=== PATIENT | male | born 1955 | race Caucasian/White ===

== ENCOUNTER 2018-11-18 10:38 | Day surgery (SDC) | payer MEDICARE, SELFPAY ==
--- NOTE | 2018-11-17 10:01 | PCM.HP.BLA ---
History and Physical Date of Admission: 11/18/18 HISTORY AND PHYSICAL ? Ralph Mcdonoughons 1955 ? REFERRING PHYSICIAN: ??Guanaco Cyr, DO ? CHIEF COMPLAINT: ??Consult (Consult Colonoscopy) ? HPI: The patient is a 63 year old male referred for endoscopy. ?Ralph has a personal history of colon cancer diagnosed in 2011 and is s/p partial colectomy which was done in [place]. ?He later underwent laparoscopic liver resection and ablation for liver metastases. ?He NOTES a recent history of blood in his stool.???He has noted both bright red blood with wiping as well as some slightly darker blood mixed into the stool itself.??Patient denies any change in bowel habits, weight changes, black tarry stools or abdominal pain. ? ? The patient?NOTES the following upper?GI complaints: ?Notes recent history of heartburn. He describes this as mid-sternal chest discomfort without radiation, no true symptoms of reflux or brackish taste, no dysphagia. ?Rates pain as 1/10 most of the time, sometimes up to 4/10 in the evenings. ?Denies shortness of breath. ?He recently started omeprazole which seems to be helping. ?Notes he has been under a great deal of stress as he has been helping his father who was recently diagnosed with advanced colon cancer. ?Patient has had not had a recent EKG. Notes some family history of heart disease. ?Patient does use tobacco, smokes ~10 cigarettes per day. ?He states he consumes 4-5 alcoholic beverages every other day. ?He takes lexapro and occasionally Ativan for anxiety. ? ? Patient denies problems with sedation in the past. ? ? ? PAST?MEDICAL?HISTORY PAST MEDICAL HISTORY Diagnosis Date ? Bowel disease ? ? Colon CA ? Colon cancer (HCC) ? ? Depression ? ? Hemorrhoids ? ? HTN (hypertension) ? ? Hypercholesteremia ? ? ? PAST?SURGICAL?HISTORY PAST SURGICAL HISTORY Procedure Laterality Date ? ABLATION LIVER LESION NANOKNIFE ? 2015 ? COLONOSCOP W/ OR W/O BRSH SPEC ? 12/25/2011 ? Colonoscopy ? COLONOSCOPY ? 2013 ? LAP LIVER RESECTION ? 2013 ? w/ ablation ? PARTIAL REMOVAL OF COLON ? 2011 ? ascending colon ? PAST SURGICAL HISTORY OF ? 1989 ? Rt shoulder surgery ? PAST SURGICAL HISTORY OF ? 2003 ? Lumbar back surgery ? TUNNEL VAD W SUB Q PORT >=5 ? 03/11/13 ? right ? ? CURRENT?MEDICATIONS ? Current Outpatient Medications: omeprazole (PRILOSEC) 20 mg capsule Take 2 capsules by mouth once daily. lamoTRIgine (LAMICTAL) 100 mg tablet Take 100 mg by mouth every morning. escitalopram oxalate (LEXAPRO) 20 mg tablet Take 20 mg by mouth every morning. LORazepam (ATIVAN) 1 mg tablet Take 1 tablet by mouth every 6 hours as needed for up to 90 days. metoprolol succinate ER (TOPROL XL) 25 mg 24 hr tablet Take 1 tablet by mouth once daily. acetaminophen (TYLENOL) 500 mg tablet Take 1,000 mg by mouth as needed. TURMERIC ROOT EXTRACT ORAL Take 1 tablet by mouth once daily. OTC PRODUCT 5-MTHF, phytomulti,alpha lipoic acid pravastatin (PRAVACHOL) 40 mg tablet Take 40 mg by mouth once daily. ? DYAZIDE 37.5 MG-25 MG CAP Take one (1) capsule daily. ? No current facility-administered medications for this visit.? ? ALLERGIES:?Eloxatin [Oxaliplatin] ? PERSONAL HISTORY:? SOCIAL?HISTORY Social History ??Socioeconomic History ?Marital status: ?Spouse name: Not on file ?Number of children: Not on file ?Years of education: Not on file ?Highest education level: Not on file ??Occupational History ?Occupation: FOOD AND BEVERAGE SERVER ?Employer: [employer] ??Social Needs ?Financial resource strain: Not on file ?Food insecurity: ?Worry: Not on file ?Inability: Not on file ?Transportation needs: ?Medical: Not on file ?Non-medical: Not on file ??Tobacco Use ?Smoking status: Current Every Day Smoker ?Packs/day: 1.00 ?Years: 44.00 ?Pack years: 44 ?Types: Cigarettes ?Smokeless tobacco: Never Used ?Tobacco comment: Pt has cut back to 10 cigarettes daily. ??Substance and Sexual Activity ?Alcohol use: Yes ?Frequency: 2-3 times a week ?Drinks per session: 5 or 6 ?Binge frequency: Less than monthly ?Comment: rare ?Drug use: No ?Sexual activity: Yes ?Partners: Female ? control/protection: None ??Lifestyle ?Physical activity: ?Days per week: Not on file ?Minutes per session: Not on file ?Stress: Not on file ??Relationships ?Social connections: ?Talks on phone: Not on file ?Gets together: Not on file ?Attends mormonism service: Not on file ?Active member of club or organization: Not on file ?Attends meetings of clubs or organizations: Not on file ?Relationship status: Not on file ?Intimate partner violence: ?Fear of current or ex partner: Not on file ?Emotionally abused: Not on file ?Physically abused: Not on file ?Forced sexual activity: Not on file ??Other Topics ?Concerns: ?Not on file ??Social History Narrative ?Not on file ? FAMILY HISTORY:? FAMILY?HISTORY FAMILY HISTORY Problem Relation Age of Onset ? Arthritis Mother ? ? DVT Brother ? ? other (Diverticulitis [Other]) Brother ? ? other (dementia [Other]) Mother ? ? GI Brother ?TVA with HGD ? REVIEW OF SYMPTOMS: ??The review of systems data was entered by the nurse and reviewed by me ? Nursing Notes: Sang Rivero LPN ?11/13/2018 ?8:16 AM ?Signed REVIEW OF SYSTEMS: ?General:???The patient denies fatigue, denies weight loss, denies weight gain, denies feeling hot, and denies feelings of cold. ?Eyes: ?The patient denies glaucoma, denies eye injury/surgery, wears glasses or contacts. ?Ear/Nose/Throat: ?The patient denies allergies, denies hayfever, denies ear infections, and denies bloody noses. ?Cardiovascular: ?The patient denies chest pain, denies heart disease,NOTES high blood pressure,denies cardiac stent, denies prior heart attack, denies irregular heart beat, denies high cholesterol, ?denies poor circulation, denies heart failure, other cardiac issues, denies claudication, denies cold feet, denies peripheral arterial stent. ?Respiratory: ?The patient denies tuberculosis, denies pneumonia, denies frequent cough, denies pulmonary embolism, denies shortness of breath, and denies coughing up blood. ?Gastrointestinal: ?The patient denies difficulty swallowing, NOTES acid reflux, NOTES ulcers, denies vomiting, denies jaundice/hepatitis, denies gallbladder problems, denies black or tarry stools, NOTES hemorrhoids, NOTES bleeding from rectum, denies diverticulitis, denies constipation, denies diarrhea, denies loss of stool control, and denies hernias. ?Kidney/Bladder: ?The patient denies kidney stones, denies urine infections, and denies bloody urine. ?Skin: ?The patient denies a history of skin cancer, NOTES bleeding/changing moles, and denies a history of skin rash. ?Neurologic: ?The patient denies a history of epilepsy/convulsions, denies headaches, denies head/spinal injuries, and denies stroke/TIA. ?Psychiatric: ?The patient NOTES psychiatric medications, NOTES depression, and denies voices, denies substance abuse. ?Endocrine: ?The patient denies thyroid disorders, denies diabetes, and denies hormonal problems. ?Hematologic: ?The patient denies a history of bruising, denies bleeding, and denies anemia, denies blood clots. ?Infections: ?The patient denies a history of measles and mumps, denies rheumatic fever, and denies sexually transmitted diseases. ?Musculoskeletal: ?The patient denies back pain/injury, NOTES back problems, denies sciatica, denies knee/foot trouble, denies arthritis, or denies gout. ? ? When was patient's last Mammogram screening? N/A ? ?Last Colonoscopy: ?2012 ? Sang Rivero LPN? I have confirmed and edited as necessary, the PFSH and ROS obtained by others. ? ? PHYSICAL EXAMINATION: ? General: ?The patient is 63 year old male, well nourished, well hydrated in no acute distress. ?The patient is oriented to time, place, and person. ? VITALS:?Blood pressure 126/74, pulse 78, temperature 36.5 ?C (97.7 ?F), temperature source Temporal Artery, height 185.4 cm (6' 1), weight 96.2 kg (212 lb), SpO2 98 %.?Body mass index is 27.97 kg/m?.? ? HEENT: ?Normal cephalic, ataumatic, pupils are equally round, sclera are anicteric, mucous membranes are moist, oropharynx is clear. ?Neck has no masses, asymmetry or lymphadenopathy. ? ? Respiratory: ?Clear to auscultation and percussion. ?Normal respiratory excursion and pattern. ? Cardiac: ?Examination is regular rate and rhythm. ?Normal S1/S2 ? Abdominal exam: ?Soft, nontender, ?with no palpable masses. ?No hepatosplenomegaly. ?No palpable hernias. ? Extremities: ?no clubbing, cyanosis or edema. ?No adenopathy. ? LABORATORY VALUES: As Noted ? RADIOLOGIC STUDIES: ?As Noted ? ? Assessment ? IMPRESSION:?blood in stools, personal history of colon cancer. Recent history of mid-sternal chest discomfort, improving with PPI ? PLAN: ?I have reviewed my findings with the surgeon. ?Will plan for upper and lower?endoscopy. ??We discussed the risks and benefits of the planned endoscopy. ?I have informed the patient that complications can occur including failure to complete the endoscopy and perforation. ?The patient had the opportunity to ask questions concerning the planned endoscopy. ?My staff has also explained the procedure to the patient in understandable terms and has given the patient printed material concerning the procedure. ?The patient freely consents to surgery. ? I plan to use?Golytely?bowel preparation. ?Patient also given option of Miralax/dulcolax over the counter 2-day prep. OK to do either bowel preparation. ?Reviewed importance of good hydration with bowel preparation ? We will plan for Monitored Anesthetic Care.? ? EKG was obtained in office today which showed possible left atrial enlargement and possible inferior infarct, age undetermined. ?This was compared to his last EKG on file from 2014 which showed normal sinus rhythm. ?Recommend cardiac evaluation prior to sedation and endoscopy procedures. ??Patient is familiar with Dr. Luevano from [facility], called and made appt to be evaluated tomorrow. ?Copies of EKG from today and 2014 along with cardiac clearance form given to patient to take to his appointment and records faxed to physician office ? Patient verbalized understanding of all above and agreed with the plan. ? ? Diagnoses:?(K62.5) Blood per rectum ?(primary encounter diagnosis) (R12) Heartburn (R07.89) Chest discomfort (Z85.038) History of colon cancer (Z01.818) Preop testing (R94.31) Abnormal EKG ? ? 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 Luevano - , contacting our office that he was cleared for his procedure. Corona Crouch M.D.
[2018-11-18] VITALS (8 sets, daily range): BP systolic 91–132; BP diastolic 61–77; PULSE 58–77; RESP 14–16; TEMP 36.2–37.4; O2SAT 93–97; BMI 27.7
--- NOTE | 2018-11-18 12:00 | EGD_PTH ---
PATIENT: VARINDER ABEBE LOC: EN U#:[id number] AGE/SX: 63/M ROOM: RE11/18/[address]: Dr. Corona Crouch MD : 1955 BED: DIS: 11/18/2018 SPEC #: [id number] RECD: 11/18/18 15:26 STATUS: ZEN NGA #: [id number] YOUSUF: 11/18/18 12:[address]: Corona Crouch DEPT: SURGICAL PATHOLOGY RECD BY: Cheikh Kelley ENTERED: 11/19/18 11:38 SP TYPE: EGD BIOPSY OT DR: Dr. Fede De La Torre MD Tissues: A - Gastric mucous membrane B - Esophageal mucous membrane C - Esophageal mucous membrane D - Rectosigmoid junction Procedures: Special Stain Group I Surgery Specimen Level IV GMS Stain (control) HEADER OPERATION: Colonoscopy, EGD ([facility] [place], [place]) PRE-OP DIAGNOSIS: Rectal bleeding, indigestion TISSUE SUBMITTED: A - Antrum biopsy for H. pylori and histo, B - Distal esophagus biopsy, C - Mid esophagus biopsy, D - Rectosigmoid polyp MICROSCOPIC DIAGNOSIS A. Gastric antrum, biopsy: Mild chronic gastritis. See comment. B. Distal esophagus, biopsy: Gastroesophageal junctional mucosa with mild chronic inflammation. No evidence of intestinal metaplasia. C. Mid esophagus, biopsy: Minimal chronic inflammation. Negative for fungal organisms. See comment. D. Rectosigmoid polyp, biopsy: Hyperplastic polyp. AM:lana 11/20/18 COMMENT A. The results of immunohistochemistry for Helicobacter pylori will be reported separately ([id number]). C. GMS stain with matched control supports the above diagnosis. MICROSCOPIC DESCRIPTION Slides are reviewed. GROSS DESCRIPTION A - Received in fixative is one container labeled with the patient's name and designated gastric antrum biopsy. The specimen consists of one irregular fragment of light bush soft tissue that measures 0.5 x 0.3 x 0.1 cm. The specimen is totally submitted in one cassette. B - Received in fixative is one container labeled with the patient's name and designated distal esophagus biopsy. The specimen consists of one irregular fragment of light bush soft tissue that measures 0.5 x 0.2 x 0.1 cm. The specimen is totally submitted in one cassette. C - Received in fixative is one container labeled with the patient's name and designated mid esophagus biopsy. The specimen consists of one irregular fragment of light bush soft tissue that measures 0.5 x 0.2 x <0.1 cm. The specimen is totally submitted in one cassette. D - Received in fixative is one container labeled with the patient's name and designated rectosigmoid polyp. The specimen consists of one irregular fragment of light bush soft tissue that measures 0.7 x 0.5 x <0.1 cm. The specimen is totally submitted in one cassette. / AM:lana 11/19/18 TC: CPT: 68140 x4, [id number]
--- NOTE | 2018-11-18 12:00 | IMM_PTH ---
PATIENT: VARINDER ABEBE LOC: EN U#:[id number] AGE/SX: 63/M ROOM: RE11/18/[address]: Dr. Corona Crouch MD : 1955 BED: DIS: 11/18/2018 SPEC #: [id number] RECD: 11/19/18 12:24 STATUS: ZEN REQ #: [id number] YOUSUF: 11/18/18 12:[address]: Corona Crouch DEPT: IMMUNOHISTOCHEMISTRY RECD BY: Tejal Gonzalez ENTERED: 11/19/18 12:24 SP TYPE: IMMUNO OTHR DR: Dr. Fede De La Torre MD Tissues: A - Stomach, NOS Procedures: H Pylori (initial) PHYSICIAN & INSTITUTION [place] [id number] SPECIMEN INFORMATION: Tissue Source: A - Antrum biopsy Clinical Info: Rectal bleeding, indigestion Specimen Number: [id number] CPT code: 77172 METHODOLOGY: Deparaffinized sections of prefer/formalin-fixed tissue or PAP/DQ stained slides are incubated with monoclonal/polyclonal antibodies/oligonucleotide probes. Localization is made via biotin free immunoperoxidase method. Appropriate controls are performed and reacted as expected. Results on target cell population are indicated in the following table: RESULTS: ANTIBODY / CLONE RESULT Block A H Pylori (polyclonal) negative These tests were developed and their performance characteristics determined by [facility]. They may not have been cleared or approved by the U.S. Food and Drug Administration. The FDA has determined that such clearance or approval is not necessary. INTERPRETATION: A. Antrum, biopsy: Negative for Helicobacter pylori organisms. AM:lana 11/20/18
[2018-11-18] MEDS: Lactated Ringers 1,000 ML 100 ML IV ×2 (12:02→13:13)
--- NOTE | 2018-11-19 23:36 | OP.ENDO_ITS ---
11/19/2018 Fede De La Torre Md Re : Colonoscopy procedure for Ralph Rain Divya De La Torre This procedure was performed on Sunday, November 18, 2018. My impressions and recommendations are as follows: Impressions : - Patent functional end-to-end ileo-colonic anastomosis, characterized by healthy appearing mucosa. - One 5 mm polyp at the recto-sigmoid colon, removed with a cold snare. Resected and retrieved. - The examination was otherwise normal. - The distal rectum and anal verge are normal on retroflexion view. Recommendations : - Discharge patient to home. - Resume previous diet. - Continue present medications. - Return to my office in 1 week. - Repeat colonoscopy is recommended. The colonoscopy date will be determined after pathology results from today's exam become available for review. My findings are described in the full procedure note, which is enclosed. If I can be of further assistance, please feel free to contact me at Doctor phone number(s): , Work: . Sincerely, Corona Crouch MD 11/18/2018 1:27:20 PM This report has been signed electronically.
--- NOTE | 2018-11-19 23:36 | OP.ENDO_ITS ---
11/19/2018 Fede De La Torre Md Re : Upper GI endoscopy procedure for Ralph Rain Divya De La Torre This procedure was performed on Sunday, November 18, 2018. My impressions and recommendations are as follows: Impressions : - Normal examined jejunum. Biopsied. - Normal examined duodenum. - Gastritis. Biopsied. - Normal gastroesophageal junction. - Non-severe reflux esophagitis. Biopsied. - Normal middle third of esophagus. Biopsied. Recommendations : - Return to my office in 1 week. - Continue present medications. My findings are described in the full procedure note, which is enclosed. If I can be of further assistance, please feel free to contact me at Doctor phone number(s): , Work: . Sincerely, Corona Crouch MD 11/18/2018 1:24:56 PM This report has been signed electronically.
== END 2018-11-18 14:19 | disposition home or self-care (01) ==
LOC: EN 10:40 → AC 11:47
PROVIDERS: Family Provider Family Medicine; PCP Family Medicine; Referring Provider Surgery; Visit Provider Surgery
PROC: 0DJD8ZZ Inspection of Lower Intestinal Tract, Via Natural or Artificial Opening Endoscopic (ICD-10-PCS; CPT 45378; principal; 2018-11-18 11:55)
DX: K29.50 Unspecified chronic gastritis without bleeding (principal); K21.0 Gastro-esophageal reflux disease with esophagitis; K63.5 Polyp of colon; F32.9 Major depressive disorder, single episode, unspecified; I10 Essential (primary) hypertension; E78.00 Pure hypercholesterolemia, unspecified; F17.210 Nicotine dependence, cigarettes, uncomplicated; F41.9 Anxiety disorder, unspecified; Z79.899 Other long term (current) drug therapy; Z85.038 Personal history of other malignant neoplasm of large intestine; Z90.49 Acquired absence of other specified parts of digestive tract
CPT/HCPCS: 43239; 45380; 88305; 88312; 88342; J7120; J2405

== ENCOUNTER 2018-12-09 06:42 | Day surgery (SDC) | payer MEDICARE, SELFPAY ==
--- NOTE | 2018-12-03 02:58 | HP_ITS ---
HPI HPI History of Present Illness Surgical H&P: Yes Details: Mr. Rain is a very pleasant 63-year-old [id number] smoker, currently smoking less than 1/2 pack cigarettes daily, nondiabetic gentleman, with a history of hypertension, unknown cholesterol, nondiabetic, history of metastatic colon cancer status post resection in 2011, laparoscopic cholecystectomy, laparoscopic liver ultrasound laparoscopic partial liver resection x2 and laparoscopic radio frequency ablation of liver metastases x2 on 05/30/2013. Patient underwent redo laparoscopic liver ultrasound and microwave ablation of 2 liver metastases on 03/16/2015, with chemotherapy-induced neuropathy. In mid November 2018 the patient had a severe episode of midsternal chest discomfort associated with shortness of breath which resolved after about 30 minutes after getting into an argument with a physician at [facility], requiring him to exit the hospital and felt as though he was going to pass out because the chest pain was so severe requiring him to grab onto the gunter of his truck to stabilize him. Since that time, the patient has had episodes of substernal chest pressure which she described as a ice pick like sensation, nonradiating, with associated shortness of breath but no diaphoresis, nausea, or vomiting. His most recent chest pain event came while he was having sex with his requiring him to stop. In addition the patient states that he would get dyspnea on exertion after walking 1 flight of stairs. To evaluate the patient he underwent a stress echocardiogram on 11/15/2018 at [facility] in [place] which was read as negative although he did not reach target heart rate. He was terminated due to the inability the patient to walk on a treadmill and although the report showed no chest discomfort, the patient reported substernal chest pressure at the end of the treadmill. He also had a hypertensive blood pressure response to exercise with blood pressure greater than 200 systolic. Patient recently underwent EGD and colonoscopy with Dr. Pineda, who reportedly biopsied a stomach polyp, which reportedly came back negative although I do not have those results. Patient denies any GI bleeding, hematochezia, or bright blood per rectum. Patient's oncologist Dr. Beach requested evaluation for his chest pain. In our office his blood pressure is 140/80, and pulse of 60 and regular. His physical exam demonstrates clear lungs bilaterally, regular rate and rhythm, normal S1/S2, no S3 or S4. EKG dated 11/13/2018 shows normal sinus rhythm with possible old inferior/posterior wall myocardial infarction. EKG dated 05/22/2013 showed normal sinus rhythm with inferior Q waves all though they were less pronounced, but similar morphology. Lipids are pending. Intake Vital Signs 12/03/18 Height 6 ft 1 in 12/03/18 Weight: 212 lb 12/03/18 Body Mass Index (BMI) 27.9 12/03/18 Blood Pressure 140/80 H 12/03/18 Blood Pressure Location Lt brachial 12/03/18 Blood Pressure Position Sitting 12/03/18 Respiratory Rate 20 H 12/03/18 Pulse Rate 60 12/03/18 Pulse Source Auscultation Intake Visit Reasons: ABN EKG ([place]) Billing Associate Required: No Accompanied by: Is patient in pain?: No Allergies oxaliplatin Allergy (Verified 11/18/18 11:44) Anaphylaxis Medications Multivitamins,Therapeutic [Multivitamin] 1 tab PO DAILY 03/10/13 [History Confirmed 12/03/18] Pravastatin Sodium [Pravachol] 40 mg PO DAILY 03/10/13 [History Confirmed 12/03/18] Triamterene 37.5MG/Hctz 25MG [Dyazide (G)] 1 cap PO DAILY 03/10/13 [History Confirmed 12/03/18] 5-Mthf 1 mg PO DAILY 11/15/18 [History Confirmed 12/03/18] Escitalopram Oxalate [Lexapro] 20 mg PO DAILY 11/15/18 [History Confirmed 12/03/18] Lamotrigine [Lamictal] 100 mg PO DAILY 11/15/18 [History Confirmed 12/03/18] Lorazepam [Ativan] 1 mg PO DAILY PRN PRN 11/15/18 [History Confirmed 12/02/18] Omeprazole 40 mg PO DAILY 11/15/18 [History Confirmed 12/03/18] Turmeric Root Extract [Turmeric] 500 mg PO DAILY 11/15/18 [History Confirmed 12/03/18] aspirin 81 mg tablet,delayed release 81 mg PO DAILY 12/03/18 [History Confirmed 12/03/18] clopidogrel 75 mg tablet 75 mg PO .COMPLEX #34 tab 12/03/18 [Rx Confirmed 12/03/18] losartan 25 mg tablet 25 mg PO DAILY #90 tab 12/03/18 [Rx Confirmed 12/03/18] metoprolol succinate ER 25 mg tablet,extended release 24 hr 25 mg PO DAILY 12/03/18 [History Confirmed 12/03/18] [facility] Medical History Shortness of breath (Acute) Chest pain (Acute) Abnormal EKG (Chronic) Essential hypertension (Chronic) Hyperlipidemia (Chronic) Claudication in peripheral vascular disease (Chronic) Metastatic colon cancer to liver (Chronic) 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) Smoker (Chronic) Depressive disorder (Chronic) Surgical History History of appendectomy (Chronic) History of back surgery (Chronic ~2003) History of colonoscopy (Chronic) History of resection of liver (Chronic 05/30/13) History of shoulder surgery (Chronic ~1989) Hx laparoscopic cholecystectomy (Chronic 05/30/13) S/P right colectomy (Chronic 01/08/12) Family History Mother Alzheimer's disease Father Cancer Heart disease Heart failure Social History (Updated 12/03/18 @ 14:58 by Jeremy Allen MD) Smoking Status: Current every day smoker Tobacco: How many years used: 44 ROS Const Const: Positive for other (Pt has had CP, severe X2 episodes but also prior. ); negative for fatigue, weakness, body ache, fever(s), headache(s), chills, frequent falls, night sweats, daytime sleepiness, difficulty sleeping, excessive sweating, weight gain, weight loss, increased appetite, poor appetite or anorexia Eyes Eyes: Negative for blind spots, loss of peripheral vision, transient loss of vision, blurry vision, change in vision, double vision, floaters, tunnel vision or other ENT ENT: Negative for headache(s), dizziness, hearing loss, tinnitus, Nosebleed/epistaxis, balance problems, post nasal drip, lip swelling, tongue swelling, bleeding gums, hoarseness, neck pain, dry mouth or other Cardio Chest Pain: Yes (Had chest pain at end of stress test, also a couple severe episodes before) Frequency: other Character: sharp Onset: at rest (at first went away with baking soda), exercise (with sexual activity, stress test: more pressure), other Location: mid sternal Duration: minutes (30 minutes) Exacerbation: exercise Relieving: rest Palpitations: No Edema: None Muscle aches with walking: None Resp Respiratory: Positive for SOB with activity (not recently though); negative for SOB at rest, SOB orthopnea\SOB lying down, Cough, Coughing up blood/hemoptysis, chest congestion, pain on inspiration, snoring, stridor, wheezing, crackles, paroxysmal nocturnal dyspnea or other GI GI: Negative nausea, vomiting, heartburn, constipation, belching, bloating, cramping, vomiting blood/hematemesis, bright, red blood in stools, black,tarry stools, loose stools, Difficulty Swallowing or other : Negative for hematuria, frequent nighttime urination/ nocturia, erectile dysfunction or abnormal vaginal bleeding Musc Musc: Negative for muscle aches/ myalgia, muscle weakness, joint pain or balance problems Skin Skin: Negative redness, non-healing lesions, rash, unusual bruising, skin ulcer, wounds, jaundice or other Neuro Neuro: Negative for dizziness, lightheadedness, near syncope, syncope, orthostatic symptoms, frequent falls, headache(s), weakness, confusion, memory loss, restless legs, blurry vision, double vision, vertigo, seizures, lack of coordination or other Broderick Hematologic/Lymphatic: Negative for easy bleeding, easy bruising, enlarged lymph nodes or other Endo Endo: Negative for fatigue, cold intolerance, heat intolerance, excessive sweating, flushing, increased thirst/drinking, increased hunger, hair loss, hair growth or other Psych Psych: Negative for anxiety, depression, thoughts of harming anyone, thoughts of harming yourself, visual hallucinations, panic attacks or audible hallucinations Allergy Allergy/Immunology: Negative for throat swelling, Negative for tongue swelling, Negative for hives, Negative for rash, Negative for lip swelling Cardiology Exam Const Appearance: cooperative, healthy appearing and no acute distress Nutritional Appearance: well nourished Orientation: alert, oriented x3 and oriented to person Head Head: normal to inspection, normocephalic and atraumatic Nose: external nose normal Face and Sinus: face symmetric Mouth: oral mucosae normal Eyes General: appearance normal, both eyes and all related structures Eyelids: eyelids normal Conjunctivae: conjunctivae normal Pupils: PERRL and normal by confrontation EOM: EOM intact bilaterally Neck Neck: normal visual inspection and full ROM Carotids: normal carotid upstroke Chest Chest inspection: normal inspection of the chest Auscultation: Bilateral: Clear to Auscultation Cardio Palpation: normal PMI Rate: regular rate Rhythm: regular rhythm Heart sounds: S1 normal and S2 normal GI GI: normal to inspection, no hepatosplenomegaly and bowel sounds present Neuro General: alert, awake, oriented x3, CN's II-XI intact bilaterally and moves all extremities Skin Skin: no rashes or lesions noted Extremities Pulses: Normal: Right Femoral Pulse, Left Femoral Pulse, Right Dorsalis Pedis Pulse, Left Dorsalis Pedis Pulse, Right Posterior Tibial Pulse, Left Posterior Tibial Pulse, Right Radial Pulse, Left Radial Pulse Lower Extremity Edema: None: Bilateral Psych Psychological: normal affect Assessment & Plan 1. Chest pain R07.9 Plan 1. Chest pain: I am concerned given the patient's age, [id number] smoking history, hypertension, unknown cholesterol, new onset angina which appears to be accelerating, superimposed on hypertensive blood pressure response to exercise doing his stress test and chest pain during low intensity activity, that he may have undiagnosed coronary artery disease. Although his EKG shows a possible old inferior/posterior wall myocardial infarction, these findings were present to some degree as far back as 2013. It appears the patient's had no issues with bright red blood per rectum, and his recent EGD and colonoscopy showed no overt bleeding. Recommend he be started on Plavix 300 mg x 1 today, followed by 75 mg a day. Patient is already scheduled to go to [place] on 12/12/2018, and request expedition of his cardiac evaluation. To this end, I recommended he undergo a left heart catheterization this upcoming Sunday. If the patient has evidence of significant coronary occlusive disease, we may then proceed with stenting, drug-eluting if less than 3.5 mm, bare-metal is greater than 3.5 mm. The risks/benefits of the procedure were thoroughly explained the patient and his , with a specific attention to lack of on-site surgical back-up, and patient is agreed to proceed. Orders Orders: Left Heart Cath 12/06/18 2. Essential hypertension I10 Plan 2. Hypertension: Is also possible the patient may have hypertensive blood pressure response to exertion which may be inducing chest pain. Recommend starting Cozaar 25 mg p.o. daily in addition to his metoprolol and Dyazide. Repeat blood pressure check in 2 weeks time. Orders Orders: Left Heart Cath 12/06/18 3. Hyperlipidemia E78.5 Plan 3. Hyperlipidemia: Recommend obtaining a fasting lipid profile. Continue Pravachol for now. Depending upon the outcome of his catheterization will determine how aggressive his LDL reduction should be. Orders Orders: Left Heart Cath 12/06/18 4. Smoker F17.200 Plan 4. Tobacco abuse: I strongly encourage the patient discontinue all tobacco products given his metastatic colon cancer and his possible coronary artery disease. Patient has tried Chantix before but did not work for him. Patient is a quit date of 12/12/2018. 5. Return to office in 6 months. This note was generated using a voice recognition system and there may be incorrect words, spelling or punctuation that were not noted when reviewing the office note prior to saving. Plan Detail Other Orders Orders: Left Heart Cath 12/06/18 R06.02, R94.31 Echo Complete Today R06.02 Lipid Profile Today E78.00 Liver Profile Today E78.00 Other Medications New: metoprolol succinate ER 25 mg PO DAILY aspirin (Adult Aspirin Regimen) 81 mg PO DAILY clopidogrel (Plavix) 75 mg PO 4 tablets by mouth tonight, then 1 tablet by mouth every morning for heart cath on SundayDecember 06.; 34 tabs 3RF losartan 25 mg PO DAILY 90 tabs 3RF Follow Up +6M (Alejandro) +2 weeks (BP CHECK) Coding Level of Care Code Off vis,new,level 4 Diagnoses Chest pain R07.9 Essential hypertension I10 Hyperlipidemia E78.5 Smoker F17.200 Coding Level of Care Code Off vis,new,level 4 Diagnoses Chest pain R07.9 Essential hypertension I10 Hyperlipidemia E78.5 Smoker F17.200 Supplemental Info Supplemental Information Diagnostics Chest X-Ray 03/11/13 12/03/18 0128 <Electronically signed by Jeremy Allen MD> Date _ Jeremy Allen MD
[2018-12-03 14:00] VITALS: BMI 27.9
[2018-12-09] VITALS (26 sets, daily range): BP systolic 100–144; BP diastolic 42–98; PULSE 59–71; RESP 11–21; TEMP 36.6–37.3; O2SAT 95–100; BMI 27.9; BMI 27.8
--- NOTE | 2018-12-09 09:42 | CL.I_ITS ---
Patient Name: VARINDER ABEBE Study Date: 12/09/2018 Performing: Jeremy Allen MD Ht: 72.83 inches 185 cm : 1955 Wt: 208.69 lbs 94.66 kg Age: 63 Gender: male BSA: 2.19 PROCEDURE(S) PERFORMED QP25-AMK/COR/LV QQ11-QFY W OR WO PTCA, SINGLE CORONARY ARTERY CLINICAL PROFILE AND CO-MORBIDITIES Indications: New Onset Angina <= 2 months, Worsening Angina, Suspected CAD, LV Dysfunction Heart Failure: NYHA Class: 1, Newly Diagnosed: Yes, Heart Failure Type: Systolic Stress/Imaging Date: 11/15/2018 Stress Echocardiogram: Indeterminant Angina Classification Anginal Classification w/in 2 Weeks: CCS III CAD Presentations: Unstable angina. Comorbidities/Risk Factors: Current/Recent Smoker (< 1year) Hypertension Dyslipidemia CONCLUSIONS Double vessel CAD of the RCA (occluded) and proximal OM#1 Non obstructive coronary artery disease of LAD Segmented LV systolic dysfunction- Severe Adequate collaterals from LAD/OM to RCA. Successful PTCA/AYE proximal OM#1 with a 2.5 x 38 Promus Synergy, post dilated with a 2.5 x 12 NC bal loon; 75%-->0%, no dissection. Pt had identical chest pain symptoms during balloon and stent deploym ent. RECOMMENDATIONS Referred for immediate PCI Highly recommend quitting all tobacco products Follow up with primary net maker Risk factor modification ASA Indefinitley Plavix for at least 12 months Routine post interventional care Refer for Outpatient Cardiac Rehab Manual sheath removal per protocol Medical management of occluded mid RCA unless or until pt has recurrent anginal symptoms. Pt may nee d viability study to determine if SCREEDMAN PCI is indicated or beneficial. RCA occlusion appears to be s everal weeks old. Manual sheath removal. F/u with Dr Allen DESCRIPTION OF PROCEDURE The patient arrived to the procedure lab. The risks and benefits of the procedure as well as a full d escription of our services here and lack of surgical backup were fully explained to the patient and/o r their significant other prior to the catheterization. The Timeout was completed, verifying the bev ect patient and procedure. The patient's procedural site was prepped and draped in the usual fashion. Local anesthetic was given subcutaneously to right groin region with Lidocaine 2%. Using a modified Seldinger technique, arterial access was obtained via the right femoral artery, a 4Fr sheath was inse rted. Left Coronary Artery selective angiography was performed in multiple views using a 4 Fr. JL5 c atheter. Left Coronary Artery selective angiography was performed in multiple views using a 4 Fr. JL4 catheter. Left Coronary Artery selective angiography was performed in multiple views using a 4 Fr. J L6 catheter. Right Coronary Artery selective angiography was then performed in multiple views using a 4 Fr. 3DRC catheter. Left Coronary Artery selective angiography was performed in multip le views using a 4 Fr. Angled Pigtail catheter. LV to AO pullback pressures were then recordedThe joni ges were reviewed and options discussed. A decision was then made to proceed with an Intervention, IV US or other adjunct procedure. Arterial sheath was exchanged for a 6 Fr Sheath. EBU 3.75 Guide catheter was inserted and engaged into the LCA. [employer] [place] Guide wire was advanced to the 1st OM. Emerge 2.0 x 12 Balloon catheter was inserted. Guide catheter was inserted and engaged into the LCA. PTCA balloon inflated at 8 atms f or 15 secs. PTCA balloon inflated at 10 atms for 30 secs. Angiogram performed post balloon dilatation . Synergy 2.5 x 38 Drug Eluting stent was inserted. Drug Eluting stent was advanced across the lesion in the first obtuse marginal, proximal. Angiogram performed pre stent deployment. Angiogram performe d post stent deployment. NC Emerge 2.5 x 12 Balloon catheter was inserted. Balloon catheter was advan jesús across lesion in the first obtuse marginal, proximal. Angiogram performed post balloon dilatation . The arterial sheath was pulled and manual compression applied until hemostasis is achieved. CORONARY ANGIOGRAPHY DOMINANCE: Right Dominant LEFT HEART ASSESSMENT Left Ventricular Ejection Fraction: by LV Gram 45 % Depressed Left Ventricular systolic function LVEDP: 15 mmHg Abnormal Left Ventricular contraction pattern Inferior Basal Hypokinesis - Severe LEFT MAIN: Non-obstructive LEFT ANTERIOR DESCENDING ARTERY: MID LAD: Moderate luminal irregularities up to 50% CIRCUMFLEX ARTERY: OM 1: Proximal - 75 % Stenosis RIGHT CORONARY ARTERY: MID RCA: is occluded COLLATERAL FLOW: Collateral flow from Left to Right INTERVENTION INFORMATION LESION SITE: 1st OM (Proximal) Lesion Complexity: High/C, lesion at bifurcation: No, thrombus present: No, lesion length: 38 mm, cul prit lesion: Yes Pre Stenosis: 75 % Pre intervention SINDHU flow: 3 PROCEDURE: Drug Eluting Stent with pre and post dilatation Post Stenosis: 0 % Post intervention SINDHU flow: 3 Lesion Devices: Bhatia .014 [employer] [place] Straight 190cm Medtronic 6 Fr EBU3.75 100cm Guide Catheter [place] [employer] EMERGE MR 2.00x12 BALLOON [place] [employer] Synergy MR AYE 2.50x38 [place] Sci NC EMERGE MR 2.50x12 BALLOON COMPLICATIONS No Complications PROCEDURE MEDICATIONS Versed 1 mg IV Oxygen: 2 L/min via nasal cannula Heparin 6000 unit(s) IV 12/09/2018 09:05:00 Nitro 200 mcg IC 12/09/2018 08:55:18 Nitro 200 mcg IC 12/09/2018 08:55:18 Nitro 200 mcg IC 12/09/2018 09:06:17 IV Bolus: .9 NaCl 750ml total 12/09/2018 08:48:36 SUMMARY OF HEMODYNAMIC DATA Time AIR REST ECG 07:20:12 AO 105/61 (81) SA 08:48:18 LV 125/-12, 16 09:00:37 LV 128/-12, 15 09:00:44 LVp 132/-11, 16 09:01:04 AOp 129/65 (92) 09:01:09 Signed By Jeremy Allen MD On 12/09/2018 09:41:38 Jeremy Allen MD
[2018-12-09 10:36] LABS: ACT Activated Clotting Time 197 sec (74-137)
[2018-12-09] MEDS: 0.9% Normal Saline 1,000 ML 150 ML IV (11:00)
[2018-12-09] MEDS: LORazepam 1 MG Tablet PO (12:45)
--- NOTE | 2018-12-09 12:55 | NURSING ---
1255 C Norm RN present to pull sheath 1257 pull 1300 HR 57 R 13 BP 126/74 SpO2 99 RA 1305 HR 58 R 17 BP 123/79 SpO2 99 RA 1310 HR 58 R 16 BP 125/75 SpO2 99 RA 1315 HR 60 R 19 BP 141/91 SpO2 100 RA 1320 HR 60 R 16 BP 143/71 SpO2 99 RA 1325 HR 61 R 16 BP 115/77 SpO2 98 RA hemostasis 1330 HR 61 R 16 BP 121/79 SpO2 98 RA
--- NOTE | 2018-12-09 14:15 | CRPHASE1 ---
Patient Communication PHII Cardiac Rehab Discussed with Patient:: Yes Guide to Cardiac Rehab Given to Patient:: Yes Cardiac Rehab Facility Choice List Given to Patient:: Yes - [facility] Choice Program [facility] CR PHII:: Communication Given to CR, Refer to [facility] Senior [employer] Consultant:: Jeremy Allen PCP:: Fede De La Torre Refer Phase II Cardiac Rehab:: Yes Sessions:: 36 sessions - 3 days/wk, 12 weeks Phase I Charge:: Level I - Education Risk Factors/Lifestyle Smoking Status: Current every day smoker Hx Hypertension: Yes Hx Dyslipidemia: Yes Hx Obesity: Yes Height: 6 ft 1 in Weight:: 211 lb BMI: 27.8 Stress: Recent, Long-standing, Home/Family ETOH: Yes Risk Factor for Sedentary Lifestyle: Lowest Risk - Keeps very active, but no formal exercise Family History: Family History (Last Reviewed 12/03/18 @ 14:00 by Judy Chao) Mother Alzheimer's disease Father Cancer Heart disease Heart failure Family History: Cancer, Dementia, Heart Disease Phase I Education Given On:: [place], Nutrition, Antiplatelet medication, CHF, Smoking cessation Issues Affecting Care:: None Knowledge of Condition:: Yes Learning Preferences: Verbal, Written, Audio/Visual, Demonstration Medical/Surgical History [place]:: Yes - NSTEMI Hypertension:: Yes Dyslipidemia:: Yes Other Medical/Surgical Issues:: Colon cancer with mets to liver, Chemo induced neuropathy Discharge/Home/Social Eval Marital Status: Patient Lives With:: Cardiac Rehabilitation Info Cardiac Rehabilitation Program Information: Cardiac Rehabilitation is important for patients like you who are recovering from a heart problem. Cardiac rehabilitation programs are recognized as integral to the continued care of the patient with coronary heart disease. The cardiac rehabilitation program is designed to optimize a patient's physical, psychological, and social functioning. Health intensive care anaesthetist work in cardiac rehabilitation programs and assist you with getting the treatments you need to get stronger and healthier - like exercise, healthy eating habits, and medications. Cardiac rehabilitation has been show to help people with heart problems live longer and have better life enjoyment than people who do not go to cardiac rehabilitation. Please contact the Cardiac Rehabilitation Program at [facility] at in two weeks if you have not heard from them.
--- NOTE | 2018-12-09 14:23 | CRPH1.INST_ITS ---
General Education CAD and cardiac anatomy and function:: Patient communicates acknowledgment, Needs reinforcement Explanation of diagnoses and procedures:: Patient communicates acknowledgment, Needs reinforcement Sign/Symptoms of ME:: Patient communicates acknowledgment, Needs reinforcement Antiplatelet therapy: Patient communicates acknowledgment, Needs reinforcement Proper use of NTG-SL: Patient communicates acknowledgment, Needs reinforcement Emergency procedures and activation of EMS: Patient communicates acknowledgment, Needs reinforcement Compliance of all prescribed medications: Patient communicates acknowledgment, Needs reinforcement Smoking Patient Nicotine/Smoking Risk Factors Are:: Cigarettes Recommendations Include:: Smoking cessation strategies/Smoking packet, Second- hand smoke recommendation, Participation in a smoking cessation program Nicotine/Smoking Response Code:: Patient communicates acknowledgment, Needs reinforcement Dyslipidemia Patient Dyslipidemia Risk Factors Are:: Total Cholesterol, Triglycerides, HDL, LDL Recommendations Include:: Lipid profile not available, Reviewed NCEP/ATP guidelines, Therapeutic Lifestyle Change dietary guidelines Dyslipidemia Response Code:: Patient communicates acknowledgment, Needs reinforcement Overweight/Obesity Patient Overweight/Obesity Risk Factors Are:: Overweight = 26-29 Recommendations Include:: Weight loss of 5-10%, Reduced calorie diet, Exercise 5-7 times/week Overweight/Obesity:: Patient communicates acknowledgment, Needs reinforcement Hypertension Recommendations Include:: Maintain BP <130/85, DASH dietary guidelines, Decrease/maintain normal body weight, Moderation of ETOH Hypertension:: Patient communicates acknowledgment, Needs reinforcement Heart Disease Heart Disease Response Code:: Not instructed Diabetes Patient Diabetes Risk Factors Are:: No documented hx of diabetes Diabetes:: Not instructed Metabolic Syndrome Patient Metabolic Syndrome Risk Factors Are [3 of 5]:: Waist circumference > 35 [female] or 40 [male], Hypertension Metabolic Syndrome Response Code:: Not instructed Sedentary Patient Sedentary Risk Factors Are:: Lack of regular exercise Recommendations Include:: Aerobic exercise 5-7 times/week for 20-30 minutes continuously, Benefits of regular exercise, Discussed home walking program, Monitored Outpatient Cardiac Rehab Sedentary Response Code:: Patient communicates acknowledgment, Needs reinforcement Stress Recommendations Include:: Identification of stressors, and assessment of coping skills, Stress management techniques Stress Response Code:: Patient communicates acknowledgment, Needs reinforcement
--- NOTE | 2018-12-09 14:59 | CASEMGMT ---
Case Management Progress Note: According to patient insurance [employer], In Network Tertiary hospitals: [facility], [place], [facility], [facility], , [facility], [facility], [facility]. Ashok Doan, KATHERINE
--- NOTE | 2018-12-09 19:56 | NURSING ---
[facility] here to take pt. report given. Vital signs stable
[2018-12-10] VITALS (12 sets, daily range): BP systolic 106–136; BP diastolic 62–84; PULSE 59–93; RESP 14–18; TEMP 37.2; O2SAT 95–98
--- NOTE | 2018-12-10 07:45 | PCM.DC.CCA ---
Discharge Diet: Low fat/ Low Cholesterol Discharge Activity: Return to Normal Activity May shower in (days): 1 - No tub baths for 5 days May resume sexual activity in: 1-2 weeks Lifting Restrictions: Do not lift anything greater than 10 pounds for 3 days Call your doctor if your incision/area has: Continuous Slow Oozing, Sudden Increased Bleeding, Increased Pain/ Swelling, Increased Redness, Foul Smelling Discharge, Swelling at the incision site Call your doctor if you observe: Fever of 101 or Higher, Shortness of breath, Chest pain Remove Dressing in (days):: 1 Cleanse incision/area with: Soap & Water - 1 Additional Instructions: You are scheduled for an office appointment with Dr. Allen on 12/30/2018 at 3:15 PM. This replaces your blood pressure check for that day. You remain on aspirin and Plavix therapy. The goal is to remain on Plavix therapy for at least one year. If any when asked you to stop this medication please call the [facility] at [phone] If you have any questions or concerns please call the [facility]. Allergies/Adverse Reactions: Allergies oxaliplatin Allergy (Verified 12/06/18 08:30) Anaphylaxis Medications to take at Discharge Multivitamins,Therapeutic [Multivitamin] 1 tab PO DAILY 03/10/13 Pravastatin Sodium [Pravachol] 40 mg PO DAILY 03/10/13 Triamterene 37.5MG/Hctz 25MG [Dyazide (G)] 1 cap PO DAILY 03/10/13 5-Mthf 1 mg PO DAILY 11/15/18 Escitalopram Oxalate [Lexapro] 20 mg PO DAILY 11/15/18 Lamotrigine [Lamictal] 100 mg PO DAILY 11/15/18 Lorazepam [Ativan] 1 mg PO DAILY PRN PRN 11/15/18 Omeprazole 40 mg PO DAILY 11/15/18 Turmeric Root Extract [Turmeric] 500 mg PO DAILY 11/15/18 aspirin 81 mg tablet,delayed release 81 mg PO DAILY 12/03/18 losartan 25 mg tablet 25 mg PO DAILY #90 tab 12/03/18 metoprolol succinate ER 25 mg tablet,extended release 24 hr 25 mg PO DAILY 12/03/18 Clopidogrel Bisulfate [Clopidogrel] 75 mg PO .COMPLEX #34 tab 10/08/19 Clopidogrel Bisulfate [Plavix] 75 mg PO DAILY #90 tab 12/10/18 Orders to be completed after discharge: Phase II, Outpatient Cardiac Rehab Location: None Selected Primary Care Physician: Fede De La Torre MD [Primary Care Provider] - Test Results: Test results from this visit will be discussed in further detail at your follow-up appointment, if applicable. Please Follow Up With: Dr. Allen When: 12/30/2018 at 3:15 Cardiac Rehabilitation Info Cardiac Rehabilitation Program Information: Cardiac Rehabilitation is important for patients like you who are recovering from a heart problem. Cardiac rehabilitation programs are recognized as integral to the continued care of the patient with coronary heart disease. The cardiac rehabilitation program is designed to optimize a patient's physical, psychological, and social functioning. Health wound care technician work in cardiac rehabilitation programs and assist you with getting the treatments you need to get stronger and healthier - like exercise, healthy eating habits, and medications. Cardiac rehabilitation has been show to help people with heart problems live longer and have better life enjoyment than people who do not go to cardiac rehabilitation. Please contact the Cardiac Rehabilitation Program at [facility] at in two weeks if you have not heard from them.
[2018-12-10] MEDS: Aspirin E.C. 81 MG Tablet PO (08:47)
[2018-12-10] MEDS: Escitalopram Oxalate 20 MG Tablet PO (08:47)
[2018-12-10] MEDS: Metoprolol(XL)Succ 25 MG Tablet PO (08:47)
[2018-12-10] MEDS: Pravastatin 40 MG Tablet PO (08:47)
[2018-12-10] MEDS: Pantoprazole Sodium 40 MG Tablet PO (08:47)
[2018-12-10] MEDS: Clopidogrel Bisulfate 75 MG Tablet PO (08:47)
[2018-12-10] MEDS: lamoTRIgine 100 MG Tablet PO (08:47)
[2018-12-10] MEDS: Losartan Potassium 25 MG Tablet PO (08:47)
[2018-12-10] MEDS: Triamterene 37.5MG/Hctz 25MG Capsule 1 CAP PO (08:48)
--- NOTE | 2018-12-10 08:48 | PN.CARD_ITS ---
Subjectve: Patient feeling much better today, no chest pain, no groin pain. Telemetry negative. EKG normal sinus rhythm no acute changes. BMP and CBC pending. Right groin is clean/dry/intact without evidence of thrills, bruits or hematoma. Objective: Vital Signs Temp Pulse Resp BP Pulse Ox 98.9 F 93 16 128/84 H 96 12/10/18 00:00 12/10/18 08:47 12/10/18 06:57 12/10/18 08:47 12/10/18 07:30 Oxygen Flow Rate (L/min) 2 Oxygen Delivery Method Room Air Weight: 211 lb Body Mass Index (BMI) 27.9 Intake and Output for Last 24 Hours 12/08/18 12/09/18 12/10/18 23:59 23:59 23:59 Intake Total 1750 / 1990 240 / 240 Output Total 500 / 1000 700 / 700 Balance 1250 / 990 -460 / -460 General: Awake, Alert, Oriented x 3 HEENT: PERRL, EOMI, Sclera Non Icteric Neck: Supple, Good ROM, No Lymph Node Enlargement Lungs: Clear to auscultation Cardiovascular: Regular Rhythm, Normal S1, Normal S2, No Murmurs, No Rubs, No Gallops Vascular: No Carotid Bruits, Normal Femoral Pulses, Normal Radial Pulses, Normal Dorsalis Pedal Pulse, Normal Posterior Tibial Pulses Abdomen: Bowel Sounds Present, Soft, Non Tender, No HSM, No Organomegaly Extremities: No Cyanosis, No Clubbing, No edema Neurological: No Focal Motor or Sensory Deficit Rhythm: EKG: ECHO: Stress Test: Cardiac Cath: PCI: CT Surgery: Holter monitor: EPS: PPM: CXR: Chest CT Scan: Medical Necessity - Tobacco Use Smoking Status: Current every day smoker Assessment/Plan 1. Coronary artery disease: The patient presents with late presentation recent inferior wall myocardial infarction with occluded right coronary artery and fairly robust left to right collaterals via the LAD and left circumflex system. His main event appeared to occur around but he did not seek medical attention at that time. Patient underwent successful angioplasty and drug- eluting stenting to his obtuse marginal receiving a 2.5X 38 Promus Synergy stent with an excellent result. No attempts were made to pass a wire down what appeared to be a chronically occluded right coronary artery of greater than 48 hours. Patient has evidence of proximal inferior posterior hypokinesis with an EF which is mildly depressed. I recommend the patient continue baby aspirin, Plavix, tobacco cessation, and his antihypertensive is outlined in the [facility]. Patient will be discharged home and be enrolled in cardiac rehab and start in 2 weeks time. Recommend continuing cardiac rehab to its completion, and repeating his echocardiogram at the conclusion of cardiac rehab. If the patient continues to have exertional chest pain symptoms, and have a low threshold to attempt angioplasty of his [place] right coronary artery given what appears to be the recent occlusion of approximately 1 month ago. This would need to be done in outside facility/objective General. 2. Tobacco cessation: I strongly encouraged the patient discontinue all tobacco products as I did his . 3. Hyperlipidemia: Patient require aggressive LDL reduction. Continue statin based medications. Repeat lipid profile in 6 weeks time. 4. Patient may be discharged home and follow-up with Dr. Allen going forward. Thank you very much for the opportunity to participate in the cardiac care of your patient. Code Visit Inpatient E&M: 46320 Subs Hosp L2
[2018-12-10 08:55] LABS: Hematocrit 45.5 % (40-54); Hemoglobin 15.8 g/dL (13.0-16.5); Mean Corp Hgb Conc 34.7 g/dL (32-36); Mean Corpuscular Hgb 32.7 pg (27.0-32.0); Mean Corpuscular Volume 94.2 fL (80-94); Mean Platelet Vol. 9.8 fl (6.2-12.0); Platelet Count 234 K/mm3 (150-450); RBC Distribution Width CV 13.4 % (11.6-14.6); RBC Distribution Width SD 46.5 fl (35.1-43.9); Red Blood Count 4.83 M/mm3 (4.6-6.2); White Blood Count 7.4 K/mm3 (4.4-11.0)
[2018-12-10 09:07] LABS: Anion Gap 4 (5-15); BUN 20 mg/dL (7-18); Chloride 111 mmol/L (98-107); Creatinine, Serum 0.87 mg/dL (0.70-1.30); EST Glomerular Filtration Rate 94 mL/min (>60); Est Glom Filt Rate - Afr Amer 114 mL/min (>60); Estimated Creatinine Clearance 99.49 ml/min; Glucose 136 mg/dL (74-106); Potassium 4.3 mmol/L (3.5-5.1); Sodium Level 140 mmol/L (136-145)
--- NOTE | 2018-12-10 09:48 | PCM.PN.BLA ---
Progress Note Patient's laboratory results were reviewed. His hemoglobin and kidney function are stable. He may be discharged home with outpatient follow-up.
[2018-12-15 09:01] LABS: ACT Activated Clotting Time 142 sec (74-137)
== END 2018-12-10 08:59 | disposition home or self-care (01) ==
LOC: CLSP 06:43 → ICU 10:29
PROVIDERS: Nurse Practitioner Family; Family Provider Family Medicine; PCP Family Medicine; Referring Provider Internal Medicine Cardiovascular Disease; Visit Provider Internal Medicine Cardiovascular Disease
DX: I25.110 Atherosclerotic heart disease of native coronary artery with unstable angina pectoris (principal); R07.9 Chest pain, unspecified; E78.5 Hyperlipidemia, unspecified; F17.200 Nicotine dependence, unspecified, uncomplicated; I11.0 Hypertensive heart disease with heart failure; I50.20 Unspecified systolic (congestive) heart failure; I73.9 Peripheral vascular disease, unspecified; F32.9 Major depressive disorder, single episode, unspecified; Z85.038 Personal history of other malignant neoplasm of large intestine; Z79.82 Long term (current) use of aspirin; Z79.899 Other long term (current) drug therapy
CPT/HCPCS: 80048; 85027; 85347; 92928; 93005; 93458; 99152; 99153; J7030; J7040; Q9967; C1725; C1769; C1874; C1887; C1894; C9600

== ENCOUNTER → 2018-12-24 | Outpatient (CLI) | payer MEDICARE, SELFPAY ==
[2018-12-09 11:04] VITALS: BMI 27.9
[2018-12-09 14:22] VITALS: BMI 27.8
--- NOTE | 2018-12-24 09:29 | PCM.CR.HP2 ---
CR - History & Physical - General Arrival date:: 12/24/18 Arrival time:: 09:00 Date of Referral:: 12/09/18 Date of CR Evaluation:: 12/24/18 Referring Physician: DR. BARTON Primary Diagnosis: PCI WITH STENT - History of Present Cardiac Event Onset Date: Enter Onset Date of cardiac illnesses in Comment field below Current stable Angina Pectoris:: No Acute Myocardial Infarction within 12 months:: Yes Coronary Artery Bypass Graft:: No Heart valve replacement or repair:: No PTCA or coronary stenting:: Yes - STENT X1 Heart or Heart-Lung Transplant:: No Heart Failure EF <35%:: No Type of Symptoms:: INDIGESTION Interventions with present event:: STENT X1 Were there any complications?: NO - Medications Home Medications: Ambulatory Orders Medication Instructions Recorded Multivitamins,Therapeutic 1 tab PO DAILY 03/10/13 [Multivitamin] Pravastatin Sodium [Pravachol] 40 mg PO DAILY 03/10/13 Triamterene 37.5MG/Hctz 25MG 1 cap PO DAILY 03/10/13 [Dyazide (G)] 5-Mthf 1 mg PO DAILY 11/15/18 Escitalopram Oxalate [Lexapro] 20 mg PO DAILY 11/15/18 Lamotrigine [Lamictal] 100 mg PO DAILY 11/15/18 Lorazepam [Ativan] 1 mg PO DAILY PRN PRN 11/15/18 Omeprazole 40 mg PO DAILY 11/15/18 Turmeric Root Extract [Turmeric] 500 mg PO DAILY 11/15/18 aspirin 81 mg tablet,delayed 81 mg PO DAILY 12/03/18 release metoprolol succinate ER 25 mg 25 mg PO DAILY 12/03/18 tablet,extended release 24 hr losartan 25 mg tablet 25 mg PO DAILY #90 tab 12/12/18 clopidogrel 75 mg tablet 75 mg PO DAILY #90 tab 12/24/18 - Allergies Allergies/Adverse Reactions: Allergies oxaliplatin Allergy (Verified 12/24/18 09:28) Anaphylaxis - Sleep Disorder Evaluation Hx of Sleep Apnea: No Do you snore loudly (louder than talking or can be heard through closed doors)?: Yes Do you often feel tired/ fatigued/ sleepy during daytime?: Yes Has anyone observed you stop breathing during sleep?: Yes - SAYS ITS NOT CONSTANT History of Hypertension (for STOP score): Yes - AND PT ARE INTERESTED IN A POSSIBLE SLEEP STUDY STOP Results: Positive Advanced Directives - Advanced Directives Living Will: Yes - SOMEWHERE ENCOURAGED TO BRING COPY TO HAVE ON FILE AT [facility] Advance Directives Information Provided: Yes Advance Directives on File: Yes DNR Order?:: No Past Medical History - Past Medical Illness Medical History: Past Medical History (Last Reviewed 12/24/18 @ 09:28 by Judy Chao) Claudication (Chronic) I73.9 Atherosclerosis of coronary artery of [place] heart without angina pectoris (Chronic) I25.10 Double vessel CAD of the RCA (occluded) and proximal OM#1 Non obstructive coronary artery disease of LAD Segmented LV systolic dysfunction- Severe Adequate collaterals from LAD/OM to RCA. Successful PTCA/AYE proximal OM#1 with a 2.5 x 38 Promus Synergy, post dilated with a 2.5 x 12 NC balloon; 75%-->0%, no dissection. Pt had identical chest pain symptoms during balloon and stent deployment. 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 Successful PTCA/AYE proximal OM#1 with a 2.5 x 38 Promus Synergy, post dilated with a 2.5 x 12 NC balloon; 75%-->0%, no dissection. Pt had identical chest pain symptoms during balloon and stent deployment. Per [facility] @ [facility] , 12/09/2018 History of appendectomy Z90.49 History of back surgery Onset Date: ~2003 Z98.890 History of colonoscopy Z98.890 01/07/2013 and 02/10/2014 History of resection of liver Onset Date: 05/30/13 Z90.49 History of shoulder surgery Onset Date: ~1989 Z98.890 Hx laparoscopic cholecystectomy Onset Date: 05/30/13 Z90.49 S/P right colectomy Onset Date: 01/08/12 Z90.49 - Family History Summary Family History: Family History (Last Reviewed 12/24/18 @ 09:28 by Judy Chao) Mother Alzheimer's disease Father Cancer Heart disease Heart failure Social History - Smoking History Smoking Status: Former smoker - QUIT 3 WEEKS AGO Years Smokin Packs Smoked per Day: 2 Hx Smoking Cessation Date: 12/09/2018 Hx Tobacco Use: Yes - 49 YEARS - Alcohol Use Alcohol Usage: Yes - OCCASIONAL - Substance Abuse Hx Substance Use: No - Occupation Occupation (List type of work in comments):: Retired - [employer] - Hobbies, Recreation, Social Activities Hobbies: Watch TV, Walking, Other - BOATING Recreational Activities: I am able to engage in most, but not all activities Social Environment - Status Marital Status: - Current Living Arrangements Living Environment:: Spouse - Children How many children do you have?: 3 Do any of your children live nearby?: Yes - Safety Do you feel safe in your surroundings?: Yes - Assistance Do you need any assistance at home?: NONE Review of Systems - Review of Systems Hints: Right click = Denies (Slash). Left click = Reports ([place]) Review of Present Symptoms: Reports: PVD - PT UNSURE, Fatigue, Appetite - Normal, Sleep - Normal - BRAIN DOESNT SHUT OFF. Denies: Shortness of Breath at Rest, Shortness of Breath with Exertion, Operative Discomfort, Angina, Wound Healing, Dizziness/Lightheadedness, Heart Arrhythmia/Irregularities - Pain Is Patient Pain Free?: Yes Risk Factor Assessment - Chief Complaint Chief Complaint: CURRENT PCI PT WHO PRESENTS TODAY FOR CR INITIAL EVALUATION - Vital Signs Temperature: 98.6 F Respiratory Rate: 12 Pulse Ox: 97 Blood Pressure: 104/70 Nailbeds:: PINK - Pulse Pulse Rhythm: Regular - Hypertension How long have you been treated?: '20 SOME YEARS On medication(s)?: LOSARTAN, TRIAMTERENE Blood Pressure Sitting - Left Arm: 104/70 - Stress Stress: Recent, Long-standing, Home/Family - Diabetes Nutrition Referral for Diabetes: No - Obesity Height: 6 ft 1 in Weight:: 212 lb Weight in Pounds: 212.0 lbs Weight Source: Stated by Patient Body Mass Index (BMI): 27.9 Nutritional Referral for Obesity: No - Physical Inactivity Physical Inactivity: None - Risk Stratification Risk Guidelines: Lowest Risk: Risk Factor for Dyslipidemia - UNSURE OF LIPID PROFILE AT THIS TIME, Risk Factor for Diabetes, Risk Factor for Obesity, Risk Factor for Hypertension, Moderate Risk: Risk Factor for Smoking, Risk Factor for Sedentary Lifestyle, Risk Factor for Depression - ON MEDICATION AND COUNCELING, Highest Risk: Risk Factor for Depression - For Smoking Smoking Risk Guidelines: Smoking Low Risk: None or quit greater than 6 months ago. Smoking Moderate Risk: Smoker or quit 6 months or less ago. Smoking High Risk: Smoker - For Dyslipidemia Dyslipidemia Risk Guidelines: Low Risk: Moderate Risk: High Risk: 15-25% fat 25.1-29% fat >/= 30% fat. <7% sat fat 7-9% sat fat >9% sat fat. <150 mg chol 150-299 mg chol >/= 300 mg chol. LDL <100 LDL 100-129 LDL >/= 130. Chol/HDL ratio <5.0 Chol/HDL ratio 5.0-6.0 Chol/HDL ratio >6.0. Triglycerides <100 Triglycerides 100-149 Triglycerides >/= 150 - For Diabetes Mellitus Diabetes Risk Guidelines: Diabetes Low Risk: HgA1c <6.5% and/or FBG <120. Diabetes Moderate Risk: HgA1c 6.6-7.9% and/or FBG 120-180. Diabetes High Risk: HgA1c >/= 8% and/or FBG >180 - For Obesity/Overweight Obesity/Overweight Risk Guidelines: Obesity Low Risk: BMI <25.0. Obesity Moderate Risk: BMI 25-29.9. Obesity High Risk: BMI >/= 30.0 - For Hypertension Hypertension Risk Guidelines: Hypertension Low Risk: Systolic <120 and Diastolic <80. Hypertension Moderate Risk: Systolic 120-139 and Diastolic 80-89. Hypertension High Risk: Systolic >/= 140 and Diastolic >/= 90 - For Sedentary Lifestyle Sedentary Lifestyle Risk Guidelines: Sedentary Lifestyle Low Risk: >/= 1,500 kcal/week. Sedentary Lifestyle Moderate Risk: 700-1,499 kcal/week. Sedentary Lifestyle High Risk: < 700 kcal/week - For Depression Depression Risk Guidelines: Depression Low Risk: Not clinically depressed. Depression Moderate Risk: Mildly depressed. Depression High Risk: Clinically depressed - Family History Family History: Family History (Last Reviewed 12/24/18 @ 09:28 by Judy Chao) Mother Alzheimer's disease Father Cancer Heart disease Heart failure Motivation - Motivation to Participate On a scale of 1 to 10, how prepared are you to commit to attending program?: 10 What do you see as barriers to successfully being able to complete the program?: BACK AND FORTH TO FLA What do you see as the benefits of succesfully completing the program? In other words, what do you hope to get out of participating in the program?: AVOIDING ANOTHER HEART ATTACK Are there issues you are dealing with that will interfere with completing the program?: BACK AND FORTH TO FLA Do you have a spouse or signficant other, family or friends who will help support you to complete the program?: SPOUSE
--- NOTE | 2018-12-24 09:30 | CR.ITP_ITS ---
General Information - General Information Admitting Diagnosis: PCI WITH STENT - Education/Goals Barriers to Learning: None Individual Counseling: Initial Assessment: Nicotine/Smoking, High Blood Pressure, Hypertension, Stress Cardiac Rehabilitation Goals: 1. Maintain the individual as the primary focus of care. 2. To improve the patient's quality of life. 3. Identification of cardiac risk factors and provide cardiac risk factor management. 4. Enhance the psychosocial status of the patient. 5. Reconditioning enough to allow the patient to resume customary activities. 6. Control symptoms of cardiac disease Scale for measuring improvement of personal goals: Enter appropriate number in Comments. 2 = Unchanged. 3 = Slightly Better. 4 = Moderate Improvement. 5 = Met my Goal Personal Goals: Initial Assessment: Improve management of stress and emotions, Improve energy level, Participate in home exercise program, Get back to work, or to resume activities faster, Improve knowledge of cardiac disease, Improve muscle strength and endurance, Improve diet and eating habits (eat healthier), Control risk factors (learn risk factor modification), Other goal: - REDUCE DIRECTOR SCRIPT MPING IN LEGS, NEUROPATHY IN TOES Exercise - Initial Assessment - Visit Date of Eval: 12/24/18 - Stages of Change Stages of Change:: Action - Stress Test Date: 11/15/18 HR (bpm):: 76 Blood Pressure: 154/87 - PEAK 202/88 - Physician Prescribed Exercise Modalities: Treadmill, Biodyne, Rower, Airdyne, NuStep, SciFit Frequency (days/week): 3x/week for 12 weeks [36 sessions] Intensity: 60-80% age predicted maximum heart rate reserve Target Heart Rate:: 103-134 - Hypertension Do any of the following apply?: Yes, Medication - LOSARTAN , TRIAMTERENE 27.5MG- HCTZ 25MG Resting Blood Pressure:: 104/70 - Intervention Home Exercise/Activity Goal:: Sitting Time <3 hrs/day - Education Goals:: Warm-up, RPE PARVEZ Scale, S/S, Safe Exercise, Self-Monitoring Nutrition - Initial Assessment - Program Goals Nutrition Program Goals: LDL <70. Total Cholesterol <200. HDL >45. Triglycerides <150. HgbA1C <7%. BMI <25 - Stages of Change Stages of Change:: Action - LIPID PROFILE NOT AVAILABLE AT THIS TIME. HAVING LAB DONE WORK LATER THIS WEEK - Diabetes Diabetes:: No - Weight Management Height: 6 ft 1 in Weight:: 212 lb - Intervention Referral to dietitian:: No Referral to Diabetic Clinic:: No Will attend diet classes:: Yes - CR CLASS - Education Gave educational materials for:: Signs & symptoms of hypoglycemia, Signs & symptoms of hyperglycemia, Relate diabetes to coronary artery disease, Healthy eating Tobacco - Initial Assessment - Program Goals Tobacco Program Goals: Complete smoking cessation. Attend education classes. Improve Knowledge Test score - Stage of Change Stages of Change:: Action - Learning Barriers Learning Barriers: Ready to Learn - Family Support Do you have family support?: Yes - SPOUSE - Tobacco Use Tobacco Use: Non-smoker - QUIT SMOKING DAY OF STENT How long ago did you quit using tobacco products?: Less than 6 months ago Years Smokin - Intervention Smoking Cessation Referral:: No - PT FEELS HE IS DONE SMOKING FOR GOOD Individual Education/Counseling:: No - PT DECLINES SMOKING CESSATION REFERRAL AT THIS TIME Psychosocial - Initial Assess - Target Goals Target Goals: Assess presence or absence of depression. Using a valid screening tool, maximizes coping skills. Positive support system - Stages of Change Stages of Change:: Action - Psychosocial Test Tool Used:: HANDS Depression Questionnaire - Intervention PS - Interventions: Yes Referral to Physician - FOR SLEEP APNEA ASSESSMENT, Yes Attend Stress Management Classes - CR CLASS, Yes Uses Stress Management Skills - CR CLASS (PT CURRENTLY ON MEDICATION AND COUNCELING FOR STRESS), No Referral to Mental Health, No Referral to [facility] Case Management - Education Gave educational materials for:: Coping techniques, Signs & symptoms of depression, Stress management, Relaxation techniques - Patient/Program Goal Preventative Medication(s):: Aspirin, Clopidogrel, Beta pablito, Statin/lipid - Assistive Devices Assistive Devices:: None Patient Health Questionnaire Initial Assessment 1. Little interest or pleasure in doing things: Several days 2. Feeling down, depressed, or hopeless: More than half the days 3. Trouble falling or staying asleep, or sleeping too much: Nearly every day 4. Feeling tired or having little energy: More than half the days 5. Poor appetite or overeating: Not at all 6. Feeling bad about yourself -- or that you are a failure or have let yourself or your family down: More than half the days 7. Trouble concentrating on things, such as reading the newspaper or watching television: Several days 8. Moving or speaking so slowly that other people could have noticed. Or the opposite - being so fidgety or restless that you have been moving around a lot more than usual: Several days 9. Thoughts that you would be better off , or of hurting yourself in some way: Several days - PT IS CURRENTY IN PRIVATE COUNCELING AND ON MEDICATION FOR DEPRESSION Total Score: 13 RENETTA-Q SV Test - Statements CAD is a disease of the arteries in the heart: False Examples of risk factors for heart disease: True Angina is chest pain or discomfort: True The benefits of resistance training include: True Eating more meat and dairy products: I Don't Know Anti-platelet medications such as aspirin are important: True The only effective way to manage stress: False An exercise warm-up slowly increases heart rate: True Prepared, processed foods usually have high sodium: True Depression is common after a heart attack: True The statin medications lower cholesterol: I Don't Know To control blood pressure, lower the amount of sodium: True If someone gets chest discomfort during walking: False Transfats are partially hydrogenated vegetable oils: I Don't Know Sleep apnea that is not treated increases the risk: False To control cholesterol, one should become a vegetarian: False Someone knows if he/she is exercising at the right level: I Don't Know Diabetes cannot be prevented with exercise & health eating: False Stress is a large risk for heart attack: True A diet that can help lower blood pressure is rich in: True - Total Score Total Correct Responses: 16 Self-Efficacy Initial Assessment We would like to know how confident you are in doing certain activities. Please select your confidence level for:: Select your confidence level for the following using the scale 1-10 where 1 is not at all confident and 10 is totally confident. Your score is the average of all 6 responses. Fatigue: How confident are you that you can keep the fatigue caused by your disease from interfering with the things you want to do? Select Number: 7 Physical Discomfort or Pain: How confident are you that you can keep the physical discomfort or pain of your disease from interfering with the things you want to do? Select Number: 7 Emotional Distress: How confident are you that you can keep the emotional distress caused by your disease from interfering with the things you want to do? Select Number: 3 Other Symptoms or Health Problems: How confident are you that you can keep other symptoms or health problems from interfering with the things you want to do? Select Number: 6 Different Tasks and Activities: How confident are you that you can do the different tasks and activities needed to manage your health condition so as to reduce your need to see a doctor? Select Number: 9 Medication: How confident are you that you can do things other than just taking medication to reduce how much your illness affects your everyday life? Select Number: 9 Total Score:: 6 Nutrition Survey - Nutrition Survey Instructions Scoring Instructions: Scoring is as follows: Yes = 1 points. No = 0 point. Patient score that is >/=12 is considered to be at potential nutritional risk and could benefit from a referral to a registered dietitian. - Nutrition Survey Initial Have you lost >10 lbs over the past 2 months without trying?: No Are you following a special diet at home for diabetes, low fat, or low salt?: No Are you interested in meeting with a dietitian for help understanding your t?: Yes Do you eat less than 3 meals a day?: Yes Do you eat fatty meats (lópez, sausage, ribs, etc), fried foods, desserts, large amounts of salad dressings, margarine, butter, or cheese most days?: No Do you have food allergies? [Enter types in comment field]: No Do you eat in restaurants more than 3 times a week?: No Do you season food with salt, seasoning salt, or garlic salt?: No Do you used canned, boxed, frozen meals, or soups, seasoning packets?: No Total Score:: 2
[2018-12-24 09:55] VITALS: BP 104/70; RESP 12; TEMP 37; O2SAT 97; BMI 27.9
--- NOTE | 2018-12-24 10:15 | ECHOD_ITS ---
Reason For Study: CHEST PAIN Procedure This was a 2D Doppler, Color Flow transthoracic echocardiogram. Exam performed in department. Left Ventricle Normal size and thickness. The estimated ejection fraction is 65 %. Stage 2 diastolic dysfunction. No regional wall motion abnormalities noted. Right Ventricle Mildly dilated right ventricle. Normal systolic function. Atria Normal left atrium. Normal right atrium. Normal atrial septum. Mitral Valve The mitral valve is structurally normal. No prolapse or stenosis seen. Tricuspid Valve Normal tricuspid valve. Unable to estimate RV systolic pressure due to insufficient tricuspid regurgitant envelope. Aortic Valve Normal aortic valve. Trisinus/trileaflet aortic valve. Pulmonic Valve Normal pulmonic valve. Great Vessels Normal aortic root. Normal arch. Normal inferior vena cava. Inferior vena cava collapse with sniff. Pericardium/Pleural No pericardial effusion. MMode/2D Measurements & Calculations LVIDd: 4.7 cm IVSd: 1.1 cm LAV(MOD-bp): 53.1 ml LVIDs: 3.2 cm LVPWd: 0.92 cm LAV(MOD-bp) Indexed: 24.2 ml/m2 RVDd: 3.6 cm FS: 32.6 % LAV(MOD-sp2): 54.7 ml LAV(MOD-sp4): 48.8 ml LA dimension(2D): 4.1 cm LA A4 area: 17.5 cm2 RA A4 area: 13.4 cm2 Time Measurements MV dec time: 0.19 sec Doppler Measurements & Calculations MV E max ke: 62.4 cm/sec Lat Peak E' Ke: 7.5 cm/sec Med Peak E' Ke: 5.7 cm/sec MV A max ke: 48.4 cm/sec E/E' lat: 8.3 E/E' med: 11.0 MV E/A: 1.3 Ao V2 max: 107.6 cm/sec LV V1 max: 78.4 cm/sec PA V2 max: 72.2 cm/sec Ao max P.6 mmHg LV V1 max P.5 mmHg Interpretation Summary The estimated ejection fraction is 65 %. Stage 2 diastolic dysfunction. Unable to estimate RV systolic pressure due to insufficient tricuspid regurgitant envelope. There is no comparison study available. Ordering Physician: Jeremy Allen Referring Physician: Fede De La Torre Performed By: Ara Nicholson, EBONY, RVT
[2018-12-24 10:30] VITALS: BP 104/70; BP 154/87
== END | disposition home or self-care (01) ==
LOC: CR 08:46
PROVIDERS: Family Provider Family Medicine; PCP Family Medicine; Referring Provider Internal Medicine Cardiovascular Disease; Visit Provider Internal Medicine Cardiovascular Disease
DX: R06.02 Shortness of breath (principal); R07.9 Chest pain, unspecified
CPT/HCPCS: 93306

== ENCOUNTER → 2018-12-26 | Outpatient (CLI) | payer MEDICARE, SELFPAY ==
[2018-12-09 11:04] VITALS: BMI 27.9
[2018-12-09 14:22] VITALS: BMI 27.8
[2018-12-24 09:55] VITALS: BMI 27.9
[2018-12-26 10:58] LABS: AST(SGOT) 14 U/L (15-37); Alanine Aminotransfer ALT/SGPT 19 U/L (16-61); Albumin, Serum 3.5 g/dL (3.2-5.0); Alkaline Phosphatase 87 U/L (45-117); Bilirubin, Direct 0.08 mg/dL (0.00-0.30); Cholesterol 182 mg/dL (200); Globulin 3.4 g/dL (2.2-4.2); High Density Lipoprotein 51 mg/dL; Protein, Total 6.9 g/dL (6.4-8.2); Triglycerides 125 mg/dL; Very Low Density Lipoprotein 25 mg/dL (5-40)
--- NOTE | 2018-12-27 14:46 | STRESSREP ---
Stress Test Report Myocardial viability study. Utilizing 201 thallium. 63-year-old man with a history of coronary artery disease and occluded right coronary artery. At rest redistribution scan was performed at 4 hours and 24 hours after 3.6 mCi of thallium 201 was injected. Images were obtained and compared. The 4-hour images demonstrated normal perfusion noted in the septum anterior wall and lateral wall. There was a moderate perfusion defect noted involving the inferior wall. The 24 redistribution scan demonstrated minimal improvement in the inferior wall though there is some GI uptake also noted. There does not appear to be complete reversibility in this area. It appears to be largely infarcted tissue with minimal to mild viability noted. Conclusion: Previously infarcted inferior wall. Minimal to mild viability noted
== END | disposition home or self-care (01) ==
PROVIDERS: Family Provider Family Medicine; PCP Family Medicine; Referring Provider Internal Medicine Cardiovascular Disease; Visit Provider Internal Medicine Cardiovascular Disease
DX: I25.10 Atherosclerotic heart disease of native coronary artery without angina pectoris (principal); R06.02 Shortness of breath; R07.9 Chest pain, unspecified; T45.1X5A Adverse effect of antineoplastic and immunosuppressive drugs, initial encounter; E78.5 Hyperlipidemia, unspecified; F17.200 Nicotine dependence, unspecified, uncomplicated; G62.0 Drug-induced polyneuropathy; I10 Essential (primary) hypertension; Z95.5 Presence of coronary angioplasty implant and graft
CPT/HCPCS: 36415; 78451; 80061; 80076; A9505

== ENCOUNTER 2019-01-01 06:35 | Outpatient (RCR) | payer MEDICARE, SELFPAY ==
[2018-12-09 14:22] VITALS: BMI 27.8
[2018-12-24 09:55] VITALS: BMI 27.9
[2018-12-30 15:10] VITALS: BMI 28.2
== END 2019-01-02 23:59 ==
LOC: CR 06:35
PROVIDERS: Family Provider Family Medicine; PCP Family Medicine; Referring Provider Internal Medicine Cardiovascular Disease; Visit Provider Internal Medicine Cardiovascular Disease
DX: Z95.5 Presence of coronary angioplasty implant and graft (principal)
CPT/HCPCS: 93798

== ENCOUNTER 2019-01-03 11:01 | Outpatient (RCR) | payer MEDICARE, SELFPAY ==
[2018-12-09 14:22] VITALS: BMI 27.8
[2018-12-30 15:10] VITALS: BMI 28.2
== END 2019-02-01 23:59 ==
LOC: CR 11:01
PROVIDERS: Family Provider Family Medicine; PCP Family Medicine; Referring Provider Internal Medicine Cardiovascular Disease; Visit Provider Internal Medicine Cardiovascular Disease
DX: I25.10 Atherosclerotic heart disease of native coronary artery without angina pectoris (principal); Z95.5 Presence of coronary angioplasty implant and graft
CPT/HCPCS: 93798

== ENCOUNTER → 2019-01-06 | Outpatient (CLI) | payer MEDICARE, SELFPAY ==
[2018-12-09 14:22] VITALS: BMI 27.8
[2018-12-30 15:10] VITALS: BMI 28.2
--- NOTE | 2019-01-06 10:33 | ART_ITS ---
Reason For Study: Claudication Procedure A bilateral lower extremity continuous wave Doppler with analog waveform analysis,segmental pressures,and ankle brachial indexes with exercise. Left Segmental Pressures Left brachial= 132mmHg. Left thigh = 102mmHg. Left calf = 73mmHg. Left posterior tibial artery = 98mmHg. Left dorsalis pedis artery = 100mmHg. Left digit = 66 mmHg. The left posterior tibial artery waveforms are biphasic. The left dorsalis pedis waveforms are biphasic. Right Segmental Pressures Right brachial= 134mmHg. Right posterior tibial artery = 150mmHg. Right dorsalis pedis artery = 143mmHg. Right digit = 95 mmHg. The right posterior tibial artery waveforms are triphasic. The right dorsalis pedis waveforms are triphasic. Indices The right ankle brachial index by the posterior tibial artery is 1.12. The right ankle brachial index by the dorsalis pedis is 1.07. The right digital-brachial index is 0.71. The right post exercise ankle brachial index is 1.00. The left ankle brachial index by the posterior tibial artery is 0.73. The left ankle brachial index by the dorsalis pedis is 0.75. The left digital-brachial index is 0.49. The left post exercise ankle brachial index is 0.30. Interpretation Summary 1. Right leg with no significant occlussive disease and PATRICK 1.12 and no change with exercise with triphasic flow 2. Left with iliofemoral occlussive disease and biphasic flow wiht PATRICK 0.78 and drop 0.3 with exercise. 3. DBI 0.71/049. Ordering Physician: Jeremy Allen Referring Physician: Jeermy Allen Performed By: Christi Sanford RDCS/RVT
== END | disposition home or self-care (01) ==
LOC: CVS 10:32
PROVIDERS: Family Provider Family Medicine; PCP Family Medicine; Referring Provider Internal Medicine Cardiovascular Disease; Visit Provider Internal Medicine Cardiovascular Disease
DX: I73.9 Peripheral vascular disease, unspecified (principal)
CPT/HCPCS: 93924

== ENCOUNTER → 2019-01-24 08:18 | Outpatient (CLI) | payer MEDICARE, SELFPAY ==
[2018-12-09 14:22] VITALS: BMI 27.8
[2018-12-30 15:10] VITALS: BMI 28.2
--- NOTE | 2019-01-24 08:21 | CT_ITS ---
STUDY: CTA OF THE ABDOMINAL AORTA AND BILATERAL LOWER EXTREMITIES REASON FOR EXAM: Male, 63 years old. Left leg pain and numbness with walking RADIATION DOSAGE (If Supplied By Facility): CTDIvol = ( 9.58 ) mGy, DLP = ( 1582.56 ) mGycm TECHNIQUE: Axial CT angiography multi-detector data acquisition was obtained from the lung bases to the the following intravenous administration of IV 100mL Isovue-370 100. Axial images and MIP images were reconstructed from the axial data set. Post-processing of the angiographic images was performed, with multiplanar reformation and 3D reconstruction. Individualized dose optimization techniques were used for this CT. TECHNICAL QUALITY: Good COMPARISON: None. Descriptors of Narrowing: None (0%) Mild (< 50%) Moderate (50-70%) Severe (70-90%) Subtotal/Total Occlusion (90-100%) Non-Evaluable (technically non-diagnostic FINDINGS: Abdominal aorta: No demonstrated narrowing. Celiac and superior mesenteric arteries: No demonstrated narrowing. Inferior mesenteric artery: No demonstrated narrowing. Right renal artery(arteries): Mild atherosclerosis without hemodynamically significant stenosis. Left renal artery(arteries): Mild atherosclerosis without hemodynamically significant stenosis. Right common iliac artery: Mild atherosclerosis without hemodynamically significant stenosis. Right external iliac artery: Mild atherosclerosis without hemodynamically significant stenosis. Right internal iliac artery: Mild atherosclerosis without hemodynamically significant stenosis. Left common iliac artery: Mild atherosclerosis without hemodynamically significant stenosis. Left external iliac artery: Mild atherosclerosis without hemodynamically significant stenosis. Left internal iliac artery: Mild atherosclerosis without hemodynamically significant stenosis. RIGHT LOWER EXTREMITY Right common femoral artery: Mild atherosclerosis without hemodynamically significant stenosis. Right profundus femoris: Mild atherosclerosis without hemodynamically significant stenosis. Right superficial femoral: Mild atherosclerosis (distal, mid) without hemodynamically significant stenosis. Right popliteal artery: There is mild diffuse narrowing. Right tibioperoneal trunk: Moderate atherosclerosis without hemodynamically significant stenosis. Right anterior tibial artery: There is mild diffuse narrowing, with visualization of the vessel to the distal calf. Right posterior tibial artery: There is severe diffuse narrowing, with visualization of the vessel to the proximal calf. Right peroneal artery: No demonstrated narrowing. LEFT LOWER EXTREMITY Left common femoral artery: Mild atherosclerosis without hemodynamically significant stenosis. Left profundus femoris: Mild atherosclerosis without hemodynamically significant stenosis. Left superficial femoral: Multifocal atherosclerosis with severe (75%) stenosis at the origin. Additional multifocal atherosclerosis with moderate (65%) narrowing of the distal SFA and the abductor canal. Left popliteal artery: Mild atherosclerosis without hemodynamically significant stenosis. Left tibioperoneal trunk: No demonstrated narrowing. Left anterior tibial artery: No demonstrated narrowing. Left posterior tibial artery: No demonstrated narrowing. Left peroneal artery: No demonstrated narrowing. There are least 3 low density lesions of the right hepatic lobe measuring 2.8 cm (anterior), 2.0 cm (posterior, lateral) and 1.6 cm (medial posterior) on image 31 of series 2. There may be an mild amount of enhancement involving the central right posterior lateral lesion. The spleen and pancreas are unremarkable. Gallbladder is surgically absent. The adrenal glands are not focally enlarged. Kidneys are symmetric in size, shape and contrast enhancement with a simple cyst along the posterior left kidney measuring 1.9 cm. Small bowel is unremarkable in course and caliber. There is a surgical anastomosis of bowel in the right abdomen with right hemicolectomy. No destructive bony process. There is a fat density lesion (lipoma) of the iliopsoas muscle on the left side. Mild degenerative changes of the lumbar spine. CT/CTA Abd w/Runoff W/WO Contrast IMPRESSION: 1. Lower extremity atherosclerotic disease with moderate (distal) to severe (proximal) left SFA stenoses. 2. Mild (less than 50%) right SFA stenoses. 3. Right posterior tibial artery occludes in the proximal mid calf. 4. No iliac artery stenosis. 5. 3 hepatic low density masses, indeterminate. In the setting of known colon cancer, metastasis could be considered. Comparison with prior studies recommended. Alternatively, additional evaluation with ultrasound and/or MRI suggested. 6. Right hemicolectomy. Cholecystectomy. Electronically Signed: Jeet Shah MD ([place]) at 14:29 EST , Service support ,
== END ==
PROVIDERS: Family Provider Family Medicine; PCP Family Medicine; Referring Provider Surgery Vascular Surgery; Visit Provider Surgery Vascular Surgery
DX: I70.212 Atherosclerosis of native arteries of extremities with intermittent claudication, left leg (principal)
CPT/HCPCS: 75635; Q9967

== ENCOUNTER 2020-02-13 06:27 | Day surgery (SDC) | payer MEDICARE, SELFPAY ==
[2018-12-09 14:22] VITALS: BMI 27.8
[2020-02-11 10:07] VITALS: BMI 29.0
[2020-02-12 08:31] VITALS: BMI 29.0
--- NOTE | 2020-02-13 07:00 | HP_ITS ---
HPI HPI History of Present Illness Details: History of Present Illness 64-year-old man with a prior history of coronary artery disease status post angioplasty and stenting of the obtuse marginal branch with a 2.5 x 38 mm Promus Synergy stent, a totally occluded right coronary artery with [id number] collaterals. He apparently also has a history of metastatic colon cancer. He comes in today complaining of chest discomfort which he says is persistent most of the time. He was also admitted at a nearby hospital in January of this year with atrial fibrillation with rapid ventricular response rate. He was started on Eliquis as well as beta-pablito. An echocardiogram was performed during that visit which demonstrated an ejection fraction of 45 to 50% basal and mid inferior septum and basal inferior wall which were akinetic in the mid anterior septal as well as the mid inferior wall was also hypokinetic. He had a Covid test which was negative. He was treated with Lopressor and diltiazem but spontaneously converted after the Lopressor. He has done well since but continues to complain of this chest discomfort which he says is persistent associated with some numbness in his arm. He did have a viability study in December 2018 which did not demonstrate any evidence of ischemia. He has had no dizziness or diaphoresis no near syncope or syncope. He presents here to our office and is complaining of intermittent chest discomfort in his concerned about his coronary anatomy. His EKG done here today demonstrates normal sinus rhythm with a rate of 64 bpm and no acute changes. He appears to be stable from the oncologic standpoint. His physical exam here today is unremarkable. Intake Vital Signs 02/11/20 Height 6 ft 1 in 02/11/20 Weight: 220 lb 02/11/20 BMI 29.0 02/11/20 BP 149/94 H 02/11/20 Respiration 18 02/11/20 Pulse 74 02/11/20 Pulse Oximetry (%) 97 Intake Visit Reasons: d/c 01/27 (DJN transfer) Allergies oxaliplatin Allergy (Verified 02/11/20 10:07) Anaphylaxis Medications Multivitamins,Therapeutic [Multivitamin] 1 tab PO DAILY 03/10/13 [History Confirmed 02/11/20] Pravastatin Sodium [Pravachol] 40 mg PO DAILY 03/10/13 [History Confirmed 02/11/20] Triamterene 37.5MG/Hctz 25MG [Dyazide (G)] 1 cap PO DAILY 03/10/13 [History Confirmed 02/11/20] Escitalopram Oxalate [Lexapro] 20 mg PO DAILY 11/15/18 [History Confirmed 02/11/20] Lorazepam [Ativan] 1 mg PO DAILY PRN PRN 11/15/18 [History Confirmed 02/11/20] losartan 25 mg tablet 25 mg PO DAILY #90 tab 12/12/18 [Rx Confirmed 02/11/20] clopidogrel 75 mg tablet 75 mg PO DAILY #90 tab 12/24/18 [Rx Confirmed 02/11/20] turmeric root extract 500 mg capsule 500 mg PO DAILY PRN 06/06/19 [History Confirmed 02/11/20] apixaban 5 mg tablet 5 mg PO BID 02/09/20 [History Confirmed 02/11/20] isosorbide mononitrate 30 mg tablet,extended release 24 hr 30 mg PO DAILY #30 tab 02/11/20 [Rx Confirmed 02/11/20] lamotrigine 100 mg tablet 100 mg PO DAILY tab 02/11/20 [History Confirmed 02/11/20] metoprolol tartrate 50 mg tablet 50 mg PO BID #60 tab 02/11/20 [Rx Confirmed 02/11/20] Ejection fraction %: 45 to 49 [facility] Medical History Atrial fibrillation with rapid ventricular response (Acute 01/27/20) Atherosclerosis of coronary artery of [place] heart without angina pectoris (Chronic) Old inferior wall myocardial infarction (Chronic) Ischemic cardiomyopathy (Chronic) Essential hypertension (Chronic) Hyperlipidemia (Chronic) Peripheral vascular disease of extremity with claudication (Chronic) Metastatic colon cancer to liver (Chronic) 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) Depressive disorder (Chronic) Chest pain (Resolved) Shortness of breath (Resolved) Claudication in peripheral vascular disease (Ruled-out) Abnormal EKG (Inactive) Surgical History History of coronary artery stent placement (Resolved 12/09/18) History of back surgery (Chronic 2003) History of colonoscopy (Chronic) History of shoulder surgery (Chronic 1989) History of appendectomy (Resolved) History of resection of liver (Resolved 05/30/13) History of right hemicolectomy (Resolved) Hx laparoscopic cholecystectomy (Resolved 05/30/13) Family History Mother Alzheimer's disease Father Cancer Heart disease Heart failure Social History (Updated 02/11/20 @ 11:[address] Nik García MD) Smoking Status: Former smoker Tobacco: How many years used: 44 ROS Const Const: Negative for fatigue, weakness, headache(s), frequent falls, difficulty sleeping or excessive sweating Eyes Eyes: Negative for loss of peripheral vision, transient loss of vision, blurry vision, double vision or tunnel vision ENT ENT: Negative for headache(s), dizziness, Nosebleed/epistaxis or balance problems Cardio Chest Pain: No Palpitations: No Edema: None Muscle aches with walking: None Resp Respiratory: Negative for SOB with activity, SOB at rest, SOB orthopnea\SOB lying down, Cough or paroxysmal nocturnal dyspnea GI GI: Negative nausea, vomiting, heartburn or black,tarry stools : Negative for hematuria Musc Musc: Negative for muscle aches/ myalgia, muscle weakness, joint pain or balance problems Skin Skin: Negative non-healing lesions, rash or unusual bruising Neuro Neuro: Negative for dizziness, lightheadedness, near syncope, syncope, orthostatic symptoms, frequent falls, headache(s), weakness, blurry vision, double vision or lack of coordination [place] Hematologic/Lymphatic: Negative for easy bleeding or easy bruising Endo Endo: Negative for fatigue, excessive sweating or increased thirst/drinking Psych Psych: Negative for anxiety or depression Allergy Allergy/Immunology: Negative for hives, Negative for rash Cardiology Exam Const Appearance: cooperative, healthy appearing, no acute distress, well developed and well groomed Nutritional Appearance: average body habitus and well nourished Orientation: alert, awake and oriented x3 Head Head: normal to inspection, normocephalic and atraumatic Ears: hearing grossly normal bilaterally and external ears normal Nose: external nose normal, nares normal, nasal mucous membranes and turbinates normal, septum normal, no nasal discharge Face and Sinus: face symmetric Mouth: oral mucosae normal, tongue normal, oropharynx normal and moist mucous membranes Teeth and gingiva: dentition normal Throat: posterior oropharynx normal, tonsils normal and uvula midline Eyes General: appearance normal, both eyes and all related structures Eyelids: eyelids normal Conjunctivae: conjunctivae normal Pupils: PERRL, normal by confrontation and accommodation normal EOM: EOM intact bilaterally Neck Neck: normal visual inspection, trachea midline and no JVD JVD: +5 Carotids: normal carotid upstroke and bounding pulses Chest Chest inspection: normal inspection of the chest, symmetric chest movement and normal respiratory effort Auscultation: Bilateral: Clear to Auscultation Cardio Palpation: normal PMI Rate: regular rate Rhythm: regular rhythm Heart sounds: S1 normal, S2 normal and normal, physiologic split S2; negative rub, gallop or murmur GI GI: normal to inspection, soft, no hepatosplenomegaly and bowel sounds present Neuro General: alert, awake, oriented x3, gait normal, moves all extremities and no focal sensory deficit Skin Skin: no rashes or lesions noted Extremities Pulses: Normal: Right Femoral Pulse, Left Femoral Pulse, Right Dorsalis Pedis Pulse, Left Dorsalis Pedis Pulse, Right Posterior Tibial Pulse, Left Posterior Tibial Pulse, Right Radial Pulse, Left Radial Pulse Lower Extremity Edema: None: Bilateral Musculoskel Musculoskeletal: No joint tenderness Psych Psychological: normal affect Assessment & Plan 1. Atrial fibrillation with rapid ventricular response I48.91 Plan He does have a history of atrial fibrillation with rapid ventricular response rate. He is back in sinus rhythm at this time. My recommendation would be for him to continue his Eliquis after his procedure and increase his beta-pablito to Lopressor 50 mg twice a day. Orders Orders: 12 Lead EKG performed by [facility] Today 2. History of coronary artery stent placement Z95.5 PCI-AYE proximal OM1 with a 2.5 x 38 mm Promus Synergy Plan He is status post previous angioplasty and stenting of the left circumflex artery. He continues to complain of chest discomfort. My recommendation be to increase his beta-pablito to 50 mg twice a day, add isosorbide 30 mg a day. He however is very concerned because he was told that he did have some blockages which could not be taking care of here in this hospital. I will therefore suggest that we reevaluate his coronary anatomy to ascertain that there have been no changes despite the fact that he did have a previously negative viability scan. He appears to be more satisfied with this approach. Orders Orders: 12 Lead EKG performed by [facility] Today 3. Essential hypertension I10 Plan He does have a history of hypertension and we will continue him on the medications as noted above. Orders Orders: 12 Lead EKG performed by [facility] Today 4. Chest pain R07.9 Plan He does have this chest discomfort which is somewhat nondescript. There is a low likelihood that this is due to progressive coronary disease but with his anxiety level and his actions it may be prudent to assess his coronary anatomy to make sure that his previously placed stent is patent. Depending on those findings further recommendations will then be made. I explained this to him he understands and agrees to proceed. Orders Orders: 12 Lead EKG performed by [facility] Today Left Heart Cath/COR/LV Percut Today Plan Detail Other Orders Orders: 12 Lead EKG performed by [facility] Today E78.5, I25.10, I25.2, I25.5, I73.9 Other Medications New: metoprolol tartrate 50 mg PO BID 180 tabs 3RF isosorbide mononitrate ER 30 mg PO DAILY 90 tabs 4RF isosorbide mononitrate ER 30 mg PO DAILY 30 tabs 0RF metoprolol tartrate 50 mg PO BID 60 tabs 0RF Follow Up 6 Months ([facility]) Coding Level of Care Code Off vis,est,level 4 Diagnoses Atrial fibrillation with rapid ventricular response I48.91 History of coronary artery stent placement Z95.5 Essential hypertension I10 Chest pain R07.9 Coding Level of Care Code Off vis,est,level 4 Diagnoses Atrial fibrillation with rapid ventricular response I48.91 History of coronary artery stent placement Z95.5 Essential hypertension I10 Chest pain R07.9 Supplemental Info Supplemental Information Labs LDL Cholesterol 106 mg/dL (0-130) 12/26/18 HDL Cholesterol 51 mg/dL (40-) 12/26/18 Triglycerides 125 mg/dL (-199) 12/26/18 VLDL Cholesterol 25 mg/dL (5-40) 12/26/18 Diagnostics Electrocardiogram 02/11/20 Echocardiogram 12/24/18 Stress Test 12/27/18
--- NOTE | 2020-02-13 08:51 | CL.D_ITS ---
Patient Name: VARINDER ABEBE Study Date: 02/13/2020 Performing: Nik García MD Ht: 72.83 inches 185 cm : 1955 Wt: 220.46 lbs 100 kg Age: 64 Gender: male BSA: 2.24 PROCEDURE(S) PERFORMED QE62-MLP/COR/LV CLINICAL PROFILE AND INDICATIONS Indications: Worsening Angina Heart Failure: None Stress/Imaging Stress/Image Study Performed: No CAD Presentations: Unstable angina. CONCLUSIONS Previously placed stent in the circumflex artery which is patent, minimal LAD disease, totally occlud ed right coronary artery with [id number] collaterals and an akinetic mid inferior wall. The above is unchanged compared to the previous cardiac catheterization from a year ago. RECOMMENDATIONS Medical therapy DESCRIPTION OF PROCEDURE The patient arrived to the procedure lab. The risks and benefits of the procedure as well as a full d escription of our services here and current unavailability of surgical backup were fully explained to the patient and/or their significant other prior to the catheterization. The Timeout was completed, verifying the correct patient and procedure. The patient's procedural site was prepped and draped in the usual fashion. Local anesthetic was given subcutaneously to right radial region with Lidocaine 2% . Using a modified Seldinger technique, arterial access was obtained via the right radial artery, a 6 Fr sheath was inserted. Left Coronary Artery selective angiography was performed in multiple views u sing a 5 Fr. 4.0 [place] catheter. Right Coronary Artery selective angiography was then performed in mu ltiple views using a 5 Fr. 4.0 [place] catheter. Left Ventriculography was performed in SAEZ projection using a 5 Fr. Pigtail catheter. LV to AO pullback pressures were then recorded.The arterial sheath was pulled and a TR Band was applied for hemostasis 12cc air CORONARY ANGIOGRAPHY DOMINANCE: Right Dominant LEFT HEART ASSESSMENT Left Ventricular Ejection Fraction: by LV Gram 55 % Inferior Mid Akinesis Normal Left Ventricular systolic function LEFT MAIN: Angiographically normal LEFT ANTERIOR DESCENDING ARTERY: Mild luminal irregularities CIRCUMFLEX ARTERY: MID CIRC: Previously placed stent is patent RIGHT CORONARY ARTERY: MID RCA: Moderate luminal irregularities up to 50%, is occluded COLLATERAL FLOW: Collateral flow from Left to Right COMPLICATIONS No Complications PROCEDURE MEDICATIONS Fentanyl 50 mcg IV Versed 1 mg IV Oxygen: 2 L/min via nasal cannula Heparin diluted in 23cc Heparinized saline. Patient given 10cc IA of this solution. 02/13/2020 08:31 :30 Verapamil 2.5mg, Ntg 100mcgs, 2000 units of Heparin diluted in 23cc Heparinized saline. Patient give n 10cc IA of this solution. 02/13/2020 08:31:30 SUMMARY OF HEMODYNAMIC DATA Time AIR REST ECG 07:03:24 AO 97/68 (81) SA 08:33:33 LV 108/4, 8 08:40:02 LV 103/5, 7 08:40:07 LV 98/8, 10 08:41:00 LVp 98/5, 8 08:41:05 Signed By Nik García MD On 02/13/2020 08:50:55 Nik García MD
== END 2020-02-13 10:40 | disposition home or self-care (01) ==
LOC: CLSP 06:28
PROVIDERS: PCP Family Medicine; Referring Provider Internal Medicine Cardiovascular Disease; Visit Provider Internal Medicine Cardiovascular Disease
DX: I25.110 Atherosclerotic heart disease of native coronary artery with unstable angina pectoris (principal); I48.91 Unspecified atrial fibrillation; I10 Essential (primary) hypertension; E78.5 Hyperlipidemia, unspecified; I73.9 Peripheral vascular disease, unspecified; Z95.5 Presence of coronary angioplasty implant and graft; Z79.02 Long term (current) use of antithrombotics/antiplatelets; Z79.899 Other long term (current) drug therapy; Z87.891 Personal history of nicotine dependence
CPT/HCPCS: 93458; 99152; 99153; J7040; Q9967; C1769; C1894